=== PATIENT | female | born 1960 | race Caucasian/White ===

== ENCOUNTER 2021-02-19 08:54 | Inpatient (IN) ==
--- NOTE | 2021-02-01 16:02 | PAT Medication Instructions ---
Medication Instructions Date of Service February 01, 2021 Home Medications aspirin [Aspir-81] 81 mg PO QPM baclofen 10 mg PO TID bupropion HCl [Wellbutrin XL] 300 mg PO QAM celecoxib [Celebrex] 200 mg PO QAM dexamethasone 0.5 mg PO BID famotidine [Pepcid] 20 mg PO BID fluocinonide 1 applic TOPICAL BID PRN gabapentin 600 mg PO TID hydrocodone-acetaminophen 1 tab PO QID PRN lisinopril 5 mg PO QPM magnesium 250 mg PO PM montelukast [Singulair] 10 mg PO QAM bcbwutwoiitn-ubqtxdsy-yjbfhp [Centrum Silver] 1 tab PO QAM omega-3 fatty acids-vitamin E [Fish Oil] 2 cap PO QPM omeprazole [Prilosec] 40 mg PO QAM potassium 99 mg PO QPM rosuvastatin [Crestor] 20 mg PO PM Continue as directed fluocinonide 1 applic TOPICAL BID PRN* *Just do not use topical cream on or near surgical site within 24 hours of surgery ASK your surgeon for instructions aspirin [Aspir-81] 81 mg PO QPM celecoxib [Celebrex] 200 mg PO QAM STOP taking 2 weeks before surgery If surgery is within 2 weeks, stop taking as soon as possible. omega-3 fatty acids-vitamin E [Fish Oil] 2 cap PO QPM DO NOT take the morning of surgery baclofen 10 mg PO TID montelukast [Singulair] 10 mg PO QAM jujhdhxrbvpu-lzblmqrm-yusauq [Centrum Silver] 1 tab PO QAM Take morning of surgery With a small sip of water, OTHERWISE NOTHING TO EAT OR DRINK AFTER MIDNIGHT: bupropion HCl [Wellbutrin XL] 300 mg PO QAM dexamethasone 0.5 mg PO BID famotidine [Pepcid] 20 mg PO BID gabapentin 600 mg PO TID hydrocodone-acetaminophen 1 tab PO QID PRN (if needed, may be taken up to four hours before surgery) omeprazole [Prilosec] 40 mg PO QAM Take evening before surgery baclofen 10 mg PO TID dexamethasone 0.5 mg PO BID famotidine [Pepcid] 20 mg PO BID gabapentin 600 mg PO TID hydrocodone-acetaminophen 1 tab PO QID PRN (if needed) lisinopril 5 mg PO QPM magnesium 250 mg PO PM potassium 99 mg PO QPM rosuvastatin [Crestor] 20 mg PO PM Other Notes If you have any questions please call us at [phone] or [phone] or [phone] or [phone]
--- NOTE | 2021-02-04 11:06 | Anesthesiology Consultation ---
Date of Service February 04, 2021 Assessment & Plan (1) Encounter for pre-operative examination: COVID Status: As of 02/04 assessment, patient denies travel to endemic area, known exposure/sick contacts, or symptoms of COVID19. Patient advised to adhere to social distancing guidelines, wear a mask in public and avoid large crowds or unnecessary travel in the 2 weeks leading up to surgery. Preoperative COVID19 testing to be completed prior to surgery per surgeon's arrangements. Pat ient encouraged to be extra cautious/conscientious with COVID precautions between COVID testing and surgery. Chart Review Chart Review: Acceptable Risk for Surgery and Patient seen in Pre Admission Testing Teaching & Discussion Instructed NPO after midnight before surgery, except medications with 15 cc of water. Medication instructions provided according to the PAT guidelines. History Surgery Operation Date: 02/20/21 07:45 Proposed Procedures p L1-L3 Decompression, T11 Revision Fusion, L3 Hardware Removal, Spinal Cord Monitoring - Alonzo Pederson, Height/Weight Height: 5 ft 5 in Weight: 86.1 kg Allergies Allergy/AdvReac Type Severity Reaction Status Date / Time No Known Allergies Allergy Unverified 01/28/21 09:01 Medications Home Medications Medication Instructions Recorded Confirmed Last Taken aspirin [Aspir-81] 81 mg PO QPM 01/28/21 01/28/21 Unknown baclofen 10 mg PO TID 01/28/21 01/28/21 Unknown bupropion HCl [Wellbutrin XL] 300 mg PO QAM 01/28/21 01/28/21 Unknown celecoxib [Celebrex] 200 mg PO QAM 01/28/21 01/28/21 Unknown dexamethasone 0.5 mg PO BID 01/28/21 01/28/21 Unknown famotidine [Pepcid] 20 mg PO BID 01/28/21 01/28/21 Unknown fluocinonide 1 applic TOPICAL BID PRN 01/28/21 01/28/21 Unknown gabapentin 600 mg PO TID 01/28/21 01/28/21 Unknown hydrocodone-acetaminophen 1 tab PO QID PRN 01/28/21 01/28/21 Unknown lisinopril 5 mg PO QPM 01/28/21 01/28/21 Unknown magnesium 250 mg PO PM 01/28/21 01/28/21 Unknown montelukast [Singulair] 10 mg PO QAM 01/28/21 01/28/21 Unknown njksghnrbrgz-msttqkgl-ktvzbq 1 tab PO QAM 01/28/21 01/28/21 Unknown [Centrum Silver] omega-3 fatty acids-vitamin E 2 cap PO QPM 01/28/21 01/28/21 Unknown [Fish Oil] omeprazole [Prilosec] 40 mg PO QAM 01/28/21 01/28/21 Unknown potassium 99 mg PO QPM 01/28/21 01/28/21 Unknown rosuvastatin [Crestor] 20 mg PO PM 01/28/21 01/28/21 Unknown Past Medical History Medical History Anxiety DDD (degenerative disc disease) Depression Diverticulosis GERD (gastroesophageal reflux disease) HLD (hyperlipidemia) HTN (hypertension) Osteoarthritis Osteoporosis Spinal stenosis Exercise / Class Metabolic Activity II 4-5 Yardwork/Stairs/Walk up hill (mobility somewhat limited by back pain but does still do stairs any time she can, no CP or SOB) Past Family History Family History Other No family history of adverse response to anesthesia Past Surgical History Surgical History History of appendectomy History of x 2 History of carpal tunnel release History of cervical spinal surgery limited ROM side to side, up/down History of cholecystectomy History of colonoscopy History of esophagogastroduodenoscopy (EGD) History of lumbar surgery History of tonsillectomy History of total abdominal hysterectomy and bilateral salpingo-oophorectomy History of wisdom tooth extraction Past Anesthesia History No Hx of Anesthesia Complications and No Family Hx of Anesthesia Complications Reports nausea in pre-op area due to anxiety. History of PONV History of PONV (single episode of mild nausea, quickly relieved with IV zofran) and Hx of Motion Sickness Social History Smoking Status: Former smoker Do You Dip or Chew Tobacco: No Smoking End Date: approx 25 years ago Hx Alcohol Use: No Hx Substance Use: No substance use type: does not use Review of Systems Pt denies any recent chest pain, shortness of breath, palpitations, cough, fever, URI, or uncontrolled acid reflux. Physical Exam Vital Signs BP: 98/62 (pt reports this is normal for her, has been low for some time but was told to continue lisinopril; asymptomatic) P: 70bpm SPO2: 96% RA T: 98.1 F R: 16 ENMT Mouth: + dental restorations (few crowns); no chipped teeth and no loose teeth Thyromental Distance: > or= 3.5 Finger Breadths Mallampati Class: I Neck + limited neck extension 2 inch scar R of midline anterior neck Respiratory normal respiratory effort, lungs clear to auscultation Cardiovascular RRR, no murmur, no edema Lab Results Anesthesia Preop Results Results Anesthesia Widget: WBC 8.50 K/uL (4.8-10.8) 02/04/21 Hgb 12.2 g/dL (12.0-16.0) 02/04/21 Hct 36.2 % (37-47) L 02/04/21 Plt 242 K/uL (130-400) 02/04/21 Na 140 mmol/L (136-145) 02/04/21 K 3.8 mmol/L (3.5-5.1) 02/04/21 Cl 107 mmol/L (98-107) 02/04/21 CO2 28 mmol/L (21-32) 02/04/21 BUN 8 mg/dl (7-18) 02/04/21 Creat 0.56 mg/dl (0.6-1.2) L 02/04/21 Glucose Level 94 mg/dl (70-99) 02/04/21 PT 9.8 Seconds (9.0-12.0) 02/04/21 PTT 23.5 Seconds (21.0-31.0) 02/04/21 INR 1.0 (0.9-1.1) 02/04/21 Urine Color Yellow 02/04/21 Urine Appearance Clear (Clear) 02/04/21 Urine pH 7.0 (4.5-7.5) 02/04/21 Urine Specific [place] 1.006 (1.000-1.030) 02/04/21 Urine Protein Negative (Negative) 02/04/21 Urine Glucose (UA) Negative (Negative) 02/04/21 Urine Ketones Negative (Negative) 02/04/21 Urine Blood Negative (Negative) 02/04/21 Urine Nitrite Negative (Negative) 02/04/21 Urine Bilirubin Negative (Negative) 02/04/21 Urine Urobilinogen Negative (Negative) 02/04/21 Urine Leukocyte Esterase Negative (Negative) 02/04/21 Blood Type A Positive 02/04/21 Antibody Screen NEGATIVE 02/04/21 Testing Electrocardiogram Date: 02/04/21 Findings: + NSR @ (66bpm) No significant change compared to 10/21/2012 EKG Chest X-Ray Date: 02/04/21 Findings: + NAD
[~2021-02-19 08:54] MED LIST: ACETAMINOPHEN 500 MG TAB PO SCH; CeleBREX 200 MG CAP PO SCH; GABAPENTIN 600 MG DOSE PO SCH; LR 15ML/HR IV SCH; SUGAMMADEX SODIUM 200 MG/2 ML VIAL IV ONE; ceFAZolin 2000MG 2,000 MG/15 ML SYR IV SCH
[2021-02-19] MEDS ORDERED: NEOSTIGMINE METHYLSULFATE 1 MG/ML 10ML VIAL ONE (10:35)
[2021-02-19] MEDS ORDERED: fentaNYL citrate 100 MCG/2 ML VIAL ONE ×2 (10:35→15:15)
[2021-02-19] MEDS ORDERED: GLYCOPYRROLATE 0.2 MG/ML VIAL ONE (10:35)
[2021-02-19] MEDS ORDERED: MIDAZOLAM HCL 1 MG/ML 2ML VIAL ONE (10:35)
[2021-02-19] MEDS ORDERED: ONDANSETRON INJ 2 MG/ML 2 ML VIAL ONE (10:35)
[2021-02-19] MEDS ORDERED: DEXAMETHASONE SOD INJ 4 MG/ML VIAL ONE (10:35)
[2021-02-19] MEDS ORDERED: LIDOCAINE 2% 2 ML VIAL/AMP(20MG/ML) INFIL ONE (10:35)
[2021-02-19] MEDS ORDERED: PROPOFOL IV EMULSION 10 MG/ML 20 ML VIAL IV ONE (10:35)
[2021-02-19] MEDS ORDERED: HYDROmorphone INJ 2 MG/ML SYR/VIAL IV PRN (10:42)
[2021-02-19] MEDS ORDERED: ePHEDrine sulfate 50 MG/ML AMP IV PRN (10:42)
[2021-02-19] MEDS ORDERED: ATROPINE SULFATE 0.1 MG/ML 10ML SYR IV PRN (10:42)
[2021-02-19] MEDS ORDERED: ONDANSETRON INJ 2 MG/ML 2 ML VIAL IV PRN (10:42)
--- NOTE | 2021-02-19 10:50 | History & Physical Bridge Note ---
Date of Service February 19, 2021 History & Physical Bridge Note I have examined the patient, reviewed the History & Physical and in the interval since the performance of the History & Physical I have noted the following changes of clinical significance: no changes noted
--- NOTE | 2021-02-19 10:52 | History & Physical Report ---
Date of Service February 19, 2021 Assessment & Plan (1) Neurogenic claudication due to lumbar spinal stenosis: Admission and Anticipated Discharge Date Admission Date: L1-L3 decompression, T12 revision fusion, L3 hardware removal History of Present Illness Chief Complaint: Back and bilateral leg pain Primary Care Provider: Flores Mayfield MD This is a 60-year-old female presents with chronic persistent back and leg pain. After failing course of nonoperative care is here for surgical intervention. Allergies Allergy/AdvReac Type Severity Reaction Status Date / Time No Known Allergies Allergy Verified 02/19/21 09:37 Home Medications Medication Instructions Recorded Confirmed Type aspirin [Aspir-81] 81 mg PO QPM 01/28/21 02/19/21 History baclofen 10 mg PO TID 01/28/21 02/19/21 History bupropion HCl [Wellbutrin XL] 300 mg PO QAM 01/28/21 02/19/21 History celecoxib [Celebrex] 200 mg PO QAM 01/28/21 02/19/21 History dexamethasone 0.5 mg PO BID 01/28/21 02/19/21 History famotidine [Pepcid] 20 mg PO BID 01/28/21 02/19/21 History fluocinonide 1 applic TOPICAL BID PRN 01/28/21 02/19/21 History gabapentin 600 mg PO TID 01/28/21 02/19/21 History hydrocodone-acetaminophen 1 tab PO QID PRN 01/28/21 02/19/21 History lisinopril 5 mg PO QPM 01/28/21 02/19/21 History magnesium 250 mg PO PM 01/28/21 02/19/21 History montelukast [Singulair] 10 mg PO QAM 01/28/21 02/19/21 History tifodbejsadb-uutggmjk-rbdmzx 1 tab PO QAM 01/28/21 02/19/21 History [Centrum Silver] omega-3 fatty acids-vitamin E 2 cap PO QPM 01/28/21 02/19/21 History [Fish Oil] omeprazole [Prilosec] 40 mg PO QAM 01/28/21 02/19/21 History potassium 99 mg PO QPM 01/28/21 02/19/21 History rosuvastatin [Crestor] 20 mg PO PM 01/28/21 02/19/21 History Past Med/Surg History Medical History Anxiety DDD (degenerative disc disease) Depression Diverticulosis GERD (gastroesophageal reflux disease) HLD (hyperlipidemia) HTN (hypertension) Osteoarthritis Osteoporosis Spinal stenosis Surgical History History of appendectomy History of x 2 History of carpal tunnel release History of cervical spinal surgery limited ROM side to side, up/down History of cholecystectomy History of colonoscopy History of esophagogastroduodenoscopy (EGD) History of lumbar surgery History of tonsillectomy History of total abdominal hysterectomy and bilateral salpingo-oophorectomy History of wisdom tooth extraction Family History Other No family history of adverse response to anesthesia Social History Smoking Status: Former smoker Smoking End Date: approx 25 years ago; Second Hand Exposure: No; Do You Dip or Chew Tobacco: No; Tobacco Cessation Education Requested by Patient: No Hx Alcohol Use: No Hx Substance Use: No Preferred Language: Upper Sorbian Communication Ability: Effective Chauffeur Required: No Beliefs That Will Affect Care: None Current Living Situation: Alone Feels Safe at Home: Yes Safety Concerns: Feels Safe At This Time Assistive Devices: Glasses Physical Exam Physical Exam: Patient is alert and oriented Heart regular in rhythm Lungs clear to auscultation Results & Data ([facility]) Vital Signs (Past 12 Hours) Vital Signs Temp Pulse Resp BP Pulse Ox 02/19/21 09:48 36.6 C 74 18 148/68 H 98
[2021-02-19] MEDS ORDERED: BUPIVACAINE/EPINEPHRINE 0.5% MPF 1:200,000 30 ML VIAL ONE (11:13)
[2021-02-19] MEDS ORDERED: HYDROmorphone INJ 2 MG/ML SYR/VIAL ONE (11:49)
[2021-02-19] MEDS ORDERED: ePHEDrine sulfate 50 MG/ML AMP ONE (12:13)
[2021-02-19] MEDS ORDERED: ALBUMIN HUMAN 5% 12.5 GM/250 ML VIAL IV ONE (12:33)
[2021-02-19] MEDS ORDERED: FLOSEAL HEMOSTATIC MATRIX 10ML TOP ONE (13:36)
--- NOTE | 2021-02-19 13:41 | Operative Report ---
Post Operative Report Pre & Post Diagnosis Operation Date: 02/19/21 10:50 Pre-Op Diagnosis: Neurogenic Claudication due to Lumbar Spinal Stenosis Post-Op Diagnosis: Neurogenic Claudication due to Lumbar Spinal Stenosis I identified the patient and participated in the time-out.: Yes Procedure Operation Date: 02/19/21 10:50 Actual Procedures #1 removal of posterior instrumentation and connector edgar at L3. #2 exploration of fusion L3-L4. #3 lumbar decompression with bilateral medial facetectomies and foraminotomies L1-L2 L2-L3. #4 posterior spinal fusion T12-L3. #5 placement posterior segmental instrumentation T12 to L 2 including barrel connectors. #6 interbody fusion L2-L3. #7 placement of peek cage 9 x 22 mm at L2-L3. #8 placement locally harvested morselized autograft in the posterior gutters. Midline placement infuse collagen sponge and master graft in the posterior lateral gutters and I factor in the interbody space. Surgeon Alonzo Pederson, Client Support Consultant Kalyani Jamil Estimated Blood Loss 300 Findings Consistent with Post-Op Diagnosis Specimens None Indications This is a 60 old female who presents above-mentioned diagnosis Since course of nonoperative care is here for the above-mentioned procedure. Description of Procedure Patient met with identified informed consent obtained. Patient was then taken to the operative suite underwent a patient placed in a prone position injectable top Reg frame. All bony prominences well-padded eyes inspected to ensure no external pressure placed upon the. This point the thoracolumbar spine was prepped and draped in a sterile fashion. Sharp dissection with the assistance of Bovie cautery performed down to and exposing the lamina and transverse processes T12-L1 L2 and instrumentation at L3-L4 bilaterally. She does have 2 dorsal column stimulator leads placed and was able to work around these lesions without dislodging or moving them. I then proceeded to remove the connector and pedicle screw of L3 bilaterally exposing the proximal portion of the edgar. Fusion mass was explored noted to be mature and intact. And then performed complete laminectomy of L2 plus laminectomy L1 including bilateral medial facetectomies and foraminotomies addressing severe spinal stenosis. Pedicle screws were then placed in T12 L1-L2 bilaterally with assistance of fluoroscopy proper sized edgar placed and connected by way of a barrel connector to the pre- existing edgar. By way of a transfemoral approach on the right a complete discectomy of L2-L3 was performed endplates curetted to subcortical bleeding bone and a 9 x 22 mm peek cage filled with I factor tapped in position. The rods were locked in final position. The transverse processes of T12 L1-L2 and L3 burred to subcortically bone. Infuse collagen sponge master graft local graft was placed in the posterior gutters. 15 round SHAY drain inserted. The incision was then closed with 1 Vicryl fascia 2-0 Vicryl subcutaneously and 4 Monocryl for final skin closure. Steri-Strip sterile dressings placed. Patient waken taken PACU stable condition. Please note spinal cord monitoring visualized at the procedure no changes noted. Lastly Kalyani Jamil was present at the entire surgeon while the patient positioning complex portions of the surgery and final skin closure. I attest to the content of the Intraoperative Record and any orders documented therein. Any exceptions are noted below.
[2021-02-19] MEDS ORDERED: ROCURONIUM BROMIDE 10 MG/ML 5 ML VIAL IV ONE (14:07)
--- NOTE | 2021-02-19 14:10 | Fluoroscopy Report ---
FL lumbar spine 2-3V HISTORY: 60 years-old Female L1-L3 decompression COMPARISON: Lumbar spine radiographs 11/14/2012 TECHNIQUE: 2 spot fluoroscopic images of the lumbar spine were obtained utilizing 21.8 seconds fluoro scopy time FINDINGS: Numbering of the vertebral segments is limited secondary to magnification. The images were submitted after completion of the surgery. Posterior interbody edgar and screw fusion n oted within the upper and mid lumbar spine with lower lumbar discectomy changes. Intrathecal catheter is partially imaged. No unexpected opaque foreign body identified. Surgical clips of the right upper quadrant abdomen. IMPRESSION: Fluoroscopic assistance as above. ACT 112: Negative or not required by law. The above report was generated using voice recognition software. It may contain grammatical, syntax o r spelling errors. Electronically signed by: Jules Nielsen M.D. 02/19/2021 2:09 PM
[2021-02-19] MEDS: fentaNYL citrate 100 MCG/2 ML VIAL IV PRN ×4 (14:23→15:22)
--- NOTE | 2021-02-19 14:36 | Anesthesiology Progress Note ---
Date of Service February 19, 2021 Anesthesia Post Procedure Vital Signs Vital Signs: Temp Pulse Pulse Resp BP Pulse Ox 02/19/21 14:30 85 18 137/59 L 98 02/19/21 14:20 90 22 129/57 L 99 02/19/21 14:10 88 16 135/63 97 02/19/21 14:00 36.3 C L 88 12 93/67 L 94 02/19/21 09:48 36.6 C 74 18 148/68 H 98 Pain Intensity Back: Pain Intensity: 5 Transfer of Care Handoff Completed per policy Notes Mental Status: alert / awake / arousable and participated in evaluation Patient Amnestic to Procedure: Yes Nausea / Vomiting: adequately controlled Pain: adequately controlled Airway Patency, RR, SpO2: stable & adequate BP & HR: stable & adequate Hydration State: stable & adequate Anesthetic Complications: no major complications apparent and Pt Satisfied with anesthetic care
[2021-02-19] MEDS ORDERED: ALUMINUM/MAGNESIUM SUSP 30 ML UDC PO PRN (16:27)
[2021-02-19] MEDS ORDERED: LORazepam 0.5 MG TAB PO PRN (16:27)
[2021-02-19] MEDS ORDERED: METOCLOPRAMIDE HCL INJ 5 MG/ML 2 ML VIAL IV PRN (16:27)
[2021-02-19] MEDS ORDERED: PROMETHAZINE HCL 12.5 MG in SODIUM CHLORIDE 0.9% 50 ML IV PRN (16:27)
[2021-02-19] MEDS ORDERED: NALOXONE HCL 0.4 MG/1 ML VIAL/CARP IV PRN (16:27)
[2021-02-19] MEDS ORDERED: ACETAMINOPHEN 1,000 MG/100 ML VIAL IV PRN (16:27)
[2021-02-19] MEDS ORDERED: traMADol HCL 50 MG TABLET PO PRN (16:27)
[2021-02-19] MEDS ORDERED: ACETAMINOPHEN 500 MG TAB PO PRN (16:27)
[2021-02-19] MEDS ORDERED: DO NOT ADMINISTER FLU VACCINE PRN (16:27)
[2021-02-19] MEDS ORDERED: HYDROmorphone INJ 1 MG/ML SYRINGE IV PRN (16:27)
[2021-02-19] MEDS ORDERED: ONDANSETRON 4 MG OD TAB PO PRN (16:27)
[2021-02-19] MEDS ORDERED: DO NOT ADMINISTER PNEUMOCOCCAL VACCINE PRN (16:27)
[2021-02-19] MEDS ORDERED: FAMOTIDINE 20 MG TAB PO PRN (16:27)
[2021-02-19] MEDS ORDERED: SOD PHOSPHATE/SOD BIPHOSPHATE ENEMA 132 ML BTL PR PRN (16:27)
[2021-02-19] MEDS ORDERED: diphenhydrAMINE Capsule 25 MG CAP PO PRN (16:27)
[2021-02-19] MEDS ORDERED: MAGNESIUM HYDROXIDE SUSP 30 ML UDC PO PRN (16:27)
[2021-02-19] MEDS ORDERED: hydrOXYzine HCl 25 MG TAB PO PRN (16:27)
[2021-02-19] MEDS ORDERED: LORazepam 0.5 MG/1 ML VIAL IV PRN (16:27)
[2021-02-19] MEDS ORDERED: HYDROmorphone INJ 0.5 MG/0.5 ML SYR IV PRN (16:27)
[2021-02-19] MEDS: LACTATED RINGER'S 1,000 ML IV SCH (17:16)
--- NOTE | 2021-02-19 17:22 | Hospitalist Consultation ---
Date of Consultation February 19, 2021 Assessment & Plan (1) Neurogenic claudication due to lumbar spinal stenosis: - Pain management, bowel regimen and DVT ppx per the primary team- has aspirin 81 mg scheduled for 2100 tonight. - PT/OT consults, pt will need CM to assist with outpatient planning for PT/OT - Follow am CBC to monitor for acute blood loss - SHAY drain in place, monitor output -Continue gabapentin (2) HTN (hypertension): - Continue lisinopril 5 mg daily (3) HLD (hyperlipidemia): - cont rosuvastatin 20 mg daily (4) Osteoporosis: - Cont supplementation with vit D, calcium, multivitamin, (5) Depression: (6) Anxiety: -Continue Wellbutrin 300 mg daily DVT PPX - teds, scds CODE: Full code Dispo: From home, likely to remain in the hospital x 1-2 days (7) Osteoarthritis: Supervising Physician Co-Signing Physician Notes Pt was seen and examined. Agreed with Nicolette LYMAN exam, assessment and plan. 60 yo F with PMHx of HTN, HLD, osteoarthritis, osteoporosis, spinal stenosis, DDD, anxiety, depression, failed conservative management, s/p elective L1-L3 decompression, T11 revision fusion, L3 hardware removal by Dr. Pederson on 02/19/2021. No postop complication. Continue incentive spirometry. Continue pain management. Will monitor H/H. Continue PT/OT eval. Fall precaution. Will Continue monitor closely. MD Tra History of Present Illness Reason for Consultation: Medical management Requesting Physician: Dr. Pederson Attending Physician: Alonzo Pederson, History of Present Illness This is a 60 yo F with PMhx of HTN, HLD, osteoarthritis, osteoporosis, spinal stenosis, DDD, anxiety, depression who presented for elective L1-L3 decompression, T11 revision fusion, L3 hardware removal by Dr. Pederson on 02/19/2021. Pt is doing well s/p surgical procedure. Reports that her pain is currently ra darcy a 6 out of 10, plans to eat dinner first and then take another pain relief tablet. She complains of some minor nausea, so was encouraged to take antiemetic if needed. Reports that her last bowel movement was last night. Patient lives at home by herself, has not thought about home PT/OT, was encouraged to talk with case management for assistance with planning discharge process. Allergies Allergy/AdvReac Type Severity Reaction Status Date / Time No Known Allergies Allergy Verified 02/19/21 09:37 Home Medications Medication Instructions Recorded Confirmed Type aspirin 81 mg tablet,delayed 81 mg PO QPM 01/28/21 02/19/21 History release baclofen 10 mg tablet 10 mg PO TID 01/28/21 02/19/21 History bupropion HCl 300 mg 24 hr tablet, 300 mg PO QAM 01/28/21 02/19/21 History extended release (Wellbutrin XL) celecoxib 200 mg capsule (Celebrex) 200 mg PO QAM 01/28/21 02/19/21 History dexamethasone 0.5 mg/5 mL oral 0.5 mg PO BID 01/28/21 02/19/21 History elixir famotidine 20 mg tablet (Pepcid) 20 mg PO BID 01/28/21 02/19/21 History fluocinonide 0.05 % topical 1 applic TOPICAL BID PRN 01/28/21 02/19/21 History ointment gabapentin 600 mg tablet 600 mg PO TID 01/28/21 02/19/21 History hydrocodone 10 mg-acetaminophen 1 tab PO QID PRN 01/28/21 02/19/21 History 325 mg tablet magnesium 250 mg tablet 250 mg PO PM 01/28/21 02/19/21 History montelukast 10 mg tablet 10 mg PO QAM 01/28/21 02/19/21 History (Singulair) gavxuevvletd-nxvhvyej-grpenn tablet 1 tab PO QAM 01/28/21 02/19/21 History omega-3 fatty acids-vitamin E 2 cap PO QPM 01/28/21 02/19/21 History 1,000 mg capsule omeprazole 40 mg capsule,delayed 40 mg PO QAM 01/28/21 02/19/21 History release potassium 99 mg tablet 99 mg PO QPM 01/28/21 02/19/21 History rosuvastatin 20 mg tablet (Crestor) 20 mg PO PM 01/28/21 02/19/21 History Patient History Medical History (Updated 02/19/21 @ 17:39 by Nicolette Washburn PA-C) Anxiety DDD (degenerative disc disease) Depression Diverticulosis GERD (gastroesophageal reflux disease) HLD (hyperlipidemia) HTN (hypertension) Osteoarthritis Osteoporosis Spinal stenosis Surgical History History of appendectomy History of x 2 History of carpal tunnel release History of cervical spinal surgery limited ROM side to side, up/down History of cholecystectomy History of colonoscopy History of esophagogastroduodenoscopy (EGD) History of lumbar surgery History of tonsillectomy History of total abdominal hysterectomy and bilateral salpingo-oophorectomy History of wisdom tooth extraction Family History Other No family history of adverse response to anesthesia Social History Smoking Status: Former smoker Smoking End Date: approx 25 years ago; Second Hand Exposure: No; Do You Dip or Chew Tobacco: No; Tobacco Cessation Education Requested by Patient: No Hx Alcohol Use: No Hx Substance Use: No Preferred Language: German Communication Ability: Effective Ski Lift Operator Required: No Beliefs That Will Affect Care: None marital status: / Current Living Situation: Alone Other Information That Helps Us Care for You: No Feels Safe at Home: Yes Safety Concerns: Feels Safe At This Time Assistive Devices: None Assistive Devices Comment: Cane at times. Review of Systems Review of Systems: Constitutional: No fever, sweats or chills Eyes: No diplopia, no worsening or blurred vision ENT: normal hearing, no trouble swallowing Respiratory: No cough, sputum, dyspnea at rest or on exertion Cardiovascular: No chest pain, tightness or palpitations Abdomen: No pain, nausea, vomiting, diarrhea or constipation Back: pain rate 6/10 currently, SHAY drain in place. Musculoskeletal: No joint pain, calf pain, swelling Neurologic: No weakness, numbness/tingling, or balance problems. + reports nu mbness present in the right lower extremity toes with standing for prolonged periods prior to surgery. Psychiatric: No anxiety or depression Skin: No rash or itch Physical Exam Physical Exam: General: awake, alert, no apparent distress, obese with BMI of 32.0 Head: Normocephalic, atraumatic ENT: PERRL, EOMI, no pharyngeal exudate, mucous membranes moist Chest: Clear to auscultation, on room air, no adventitious breath sounds Cardiac: Regular rate and rhythm, no murmur, no JVD, normal peripheral pulses, good capillary refill Abdominal: NABS x 4 quadrants, soft, nondistended, nontender to palpation, no rebound or guarding Back: SHAY drain in place draining bloody fluid. Back not examined as patient ly ing flat. Extremities: Normal inspection, no peripheral edema or erythema, calfs nontender to palpation Psych: Normal mood and affect Neuro: AAO x 3, strength intact bilaterally and rated 5/5, no motor deficits, speech is clear, no peripheral sensory deficits. Results & Data Results & Data ([facility]) Vital Signs (Past 12 Hours) Vital Signs Temp Pulse Pulse Resp BP BP Pulse Ox 02/19/21 17:17 87 18 114/57 L 95 02/19/21 16:50 36.8 C 88 18 108/59 L 98 02/19/21 16:20 87 16 123/52 L 95 02/19/21 16:05 79 16 125/60 98 02/19/21 15:50 78 16 125/60 94 02/19/21 15:35 73 16 120/58 L 97 02/19/21 15:20 76 22 125/62 99 02/19/21 15:05 83 20 122/56 L 99 02/19/21 14:50 36.1 C L 79 20 128/55 L 99 02/19/21 14:40 36.1 C L 85 22 126/56 L 100 02/19/21 14:30 85 18 137/59 L 98 02/19/21 14:20 90 22 129/57 L 99 02/19/21 14:10 88 16 135/63 97 02/19/21 14:00 36.3 C L 88 12 93/67 L 94 02/19/21 09:48 36.6 C 74 18 148/68 H 98
[2021-02-19] MEDS: oxyCODONE HCL IR 5 MG TAB (IMMEDIATE RELEASE) PO PRN (17:45)
[2021-02-19] MEDS: BACLOFEN 10 MG TAB PO SCH ×2 (17:46→21:53)
[2021-02-19] MEDS: GABAPENTIN 600 MG TAB PO SCH ×2 (17:47→21:53)
[2021-02-19] MEDS: KETOROLAC TROMETHAMINE 15 MG/ML VIAL IV SCH ×2 (17:48→23:00)
[2021-02-19] MEDS: ceFAZolin 2000MG 2,000 MG/15 ML SYR IV SCH (20:06)
[2021-02-19] MEDS ORDERED: DOCUSATE SODIUM/SENNA 50/8.6MG TAB PO SCH (21:00)
[2021-02-19] MEDS ORDERED: NON-FORMULARY MEDICATION (Potassium 99 mg Tablet) PO SCH (21:00)
[2021-02-19] MEDS: ROSUVASTATIN CALCIUM 20 MG TAB PO SCH (21:53)
[2021-02-19] MEDS: OMEGA-3 (PURIFIED FISH OIL) 1 GM CAP PO SCH (21:53)
[2021-02-19] MEDS: FAMOTIDINE 20 MG TAB PO SCH (21:53)
[2021-02-19] MEDS: MAGNESIUM OXIDE 400 MG TAB PO SCH (21:53)
[2021-02-19] MEDS: ASPIRIN 81 MG ECTAB PO SCH (21:53)
[2021-02-19] MEDS: lisinopril 5 MG TAB PO SCH (21:53)
[2021-02-19] MEDS: ONDANSETRON INJ 2 MG/ML 2 ML VIAL IV PRN (22:58)
[2021-02-20] MEDS: oxyCODONE HCL IR 5 MG TAB (IMMEDIATE RELEASE) PO PRN ×6 (00:31→23:27)
[2021-02-20] MEDS: ceFAZolin 2000MG 2,000 MG/15 ML SYR IV SCH (03:22)
[2021-02-20] MEDS: LACTATED RINGER'S 1,000 ML IV SCH (04:40)
[2021-02-20] MEDS: KETOROLAC TROMETHAMINE 15 MG/ML VIAL IV SCH ×2 (05:10→11:39)
[2021-02-20] MEDS: POLYETHYLENE (MIRALAX) 17 GM PACK PO SCH ×3 (05:10→17:55)
[2021-02-20] MEDS ORDERED: CeleBREX 200 MG CAP PO SCH (06:00)
[2021-02-20] MEDS ORDERED: GABAPENTIN 600 MG DOSE PO SCH (06:00)
[2021-02-20] MEDS ORDERED: LR 15ML/HR IV SCH (06:00)
[2021-02-20] MEDS ORDERED: ceFAZolin 2000MG 2,000 MG/15 ML SYR IV SCH (06:00)
[2021-02-20] MEDS ORDERED: ACETAMINOPHEN 500 MG TAB PO SCH (06:00)
[2021-02-20 07:45] LABS: Basophils # (auto) 0.01 K/uL (0-0.2); Basophils % (auto) 0.1 %; Eosinophils # (auto) 0.02 K/uL (0-0.5); Eosinophils % (auto) 0.2 %; Hematocrit (blood only) 29.5 % (37-47); Hemoglobin 9.9 g/dL (12.0-16.0); Immature Granulocytes # (auto) 0.05 K/uL (0.00-0.02); Immature Granulocytes % (auto) 0.4 %; Lymphocytes # (auto) 2.84 K/uL (1.2-3.4); Lymphocytes % (auto) 21.6 %; Mean Corpuscular Hemoglobin 31.2 pg (25-34); Mean Corpuscular Hgb Conc 33.6 g/dL (32-36); Mean Corpuscular Volume 93.1 fL (80-100); Mean Platelet Volume 10.8 fL (7.4-10.4); Monocytes # (auto) 1.26 K/uL (0.11-0.59); Monocytes % (auto) 9.6 %; Neutrophils # (auto) 8.98 K/uL (1.4-6.5); Neutrophils % (auto) 68.1 %; Platelet Count 203 K/uL (130-400); RDW Coefficient of Variation 13.4 % (11.5-14.5); RDW Standard Deviation 45.5 fL (36.4-46.3); Red Blood Count 3.17 M/uL (4.2-5.4); White Blood Count 13.16 K/uL (4.8-10.8)
[2021-02-20 08:24] LABS: BUN Creatinine Ratio 17.2 (10-20); Calcium 8.6 mg/dl (8.5-10.1); Creatinine Clr Calc Pharmacy 105.8 ml/min; Est GFR (African American) 114.5 ml/min; Est GFR (Non-African American) 98.8 ml/min; Potassium 3.6 mmol/L (3.5-5.1)
[2021-02-20] MEDS ORDERED: NON-FORMULARY MEDICATION (Multivitamin-Minerals-Lutein Tablet) PO SCH (09:00)
[2021-02-20] MEDS: GABAPENTIN 600 MG TAB PO SCH ×3 (09:19→21:09)
[2021-02-20] MEDS: MONTELUKAST SODIUM 10 MG TABLET PO SCH (09:20)
[2021-02-20] MEDS: buPROPion XL 300 MG TABCR PO SCH (09:21)
[2021-02-20] MEDS: FAMOTIDINE 20 MG TAB PO SCH ×2 (09:21→21:09)
[2021-02-20] MEDS: BACLOFEN 10 MG TAB PO SCH ×3 (09:21→21:09)
[2021-02-20] MEDS: PANTOprazole 40 MG TAB PO SCH (09:21)
--- NOTE | 2021-02-20 09:21 | Hospitalist Progress Note ---
Date of Service February 20, 2021 Assessment & Plan (1) Neurogenic claudication due to lumbar spinal stenosis: - Pain management, bowel regimen and DVT ppx per the primary team- aspirin 81 mg QPM. - PT/OT consults, pt will need CM to assist with outpatient planning for PT/OT - CBC dropped from 12.2 to 9.9, no need for transfusion. Continue to monitor for acute blood loss - SHAY drain in place, monitor output, 100 mL out overnight. - Continue gabapentin - Pain adequately controlled (2) HTN (hypertension): - Continue lisinopril 5 mg daily (3) HLD (hyperlipidemia): - cont rosuvastatin 20 mg daily (4) Osteoporosis: - Cont supplementation with vit D, calcium, multivitamin (5) Depression: (6) Anxiety: -Continue Wellbutrin 300 mg daily DVT PPX - teds, scds, ambulatory CODE: Full code Dispo: From home, likely to remain in the hospital x 1-2 days (7) Osteoarthritis: Admission and Anticipated Discharge Date Admission Date: February 19, 2021 Subjective The patient was seen and examined this morning. Patient reports feeling stiff and sore in her lower back, she is sitting upright in bedside chair. Patient ate breakfast this morning, no nausea compared to last night, is passing gas but no BM yet. Travis catheter still in place however nursing is going to remove that this morning. She did not sleep very well overnight due to pain but feels that oxycodone 10 mg about every 4-5 hours is controlling her pain better. Discussion had regarding blood drop from 12 to 9.9, and that she does not need a blood transfusion at this point in time. She has walked in the hallway already this morning with nursing and did well. Patient denies any other acute complaints. Review of Systems Review of Systems: Constitutional: No fever, sweats or chills Eyes: No diplopia, no worsening or blurred vision ENT: normal hearing, no trouble swallowing Respiratory: No cough, sputum, dyspnea at rest or on exertion Cardiovascular: No chest pain, tightness or palpitations Abdomen: No pain, nausea, vomiting, diarrhea or constipation Back: pain moderate, SHAY drain in place. Musculoskeletal: No joint pain, calf pain, swelling Neurologic: No weakness, numbness/tingling, or balance problems. + Walked hallway this morning without difficulty. Psychiatric: No anxiety or depression Skin: No rash or itch Physical Exam Physical Exam: General: awake, alert, no apparent distress, obese with BMI of 32.0 Head: Normocephalic, atraumatic ENT: PERRL, EOMI, no pharyngeal exudate, mucous membranes moist Chest: Clear to auscultation, on room air, no adventitious breath sounds Cardiac: Regular rate and rhythm, no murmur, no JVD, normal peripheral pulses, good capillary refill Abdominal: NABS x 4 quadrants, soft, nondistended, nontender to palpation, no rebound or guarding Back: SHAY drain in place draining bloody fluid. Back with dressing C/D/I. Extremities: Normal inspection, no peripheral edema or erythema, calfs nontender to palpation Psych: Normal mood and affect Neuro: AAO x 3, strength intact bilaterally and rated 5/5, no motor deficits, speech is clear, no peripheral sensory deficits. Results & Data Results & Data ([facility]) Vital Signs (Past 12 Hours) Vital Signs Temp Pulse Pulse Resp BP Pulse Ox 02/20/21 08:05 36.8 C 67 16 106/63 96 02/20/21 03:16 36.8 C 78 17 103/62 97 02/19/21 22:21 36.6 C 75 17 95 02/19/21 21:50 76 125/68
--- NOTE | 2021-02-20 10:26 | Orthopedic Progress Note ---
Date of Service February 20, 2021 Assessment & Plan (1) Neurogenic claudication due to lumbar spinal stenosis: Admission and Anticipated Discharge Date Admission Date: February 19, 2021 At this time continue physical therapy monitor SHAY output hopefully discharge home in next few days. Subjective Patient's back pain is controlled leg symptoms improved Physical Exam Physical Exam: Patient is in the chair at the bedside. Is good strength testing. Appears comfortable. Results & Data ([facility]) Vital Signs (Past 12 Hours) Vital Signs Temp Pulse Pulse Resp BP Pulse Ox 02/20/21 08:05 36.8 C 67 16 106/63 96 02/20/21 03:16 36.8 C 78 17 103/62 97
[2021-02-20] MEDS ORDERED: LOPERAMIDE HCL 2 MG CAP PO STA (18:49)
[2021-02-20] MEDS ORDERED: POLYETHYLENE (MIRALAX) 17 GM PACK PO PRN (18:49)
[2021-02-20] MEDS: MAGNESIUM OXIDE 400 MG TAB PO SCH (21:09)
[2021-02-20] MEDS: ROSUVASTATIN CALCIUM 20 MG TAB PO SCH (21:09)
[2021-02-20] MEDS: lisinopril 5 MG TAB PO SCH (21:09)
[2021-02-20] MEDS: OMEGA-3 (PURIFIED FISH OIL) 1 GM CAP PO SCH (21:09)
[2021-02-20] MEDS: ASPIRIN 81 MG ECTAB PO SCH (21:09)
[2021-02-21] MEDS: oxyCODONE HCL IR 5 MG TAB (IMMEDIATE RELEASE) PO PRN ×5 (03:33→23:17)
[2021-02-21] MEDS: dexAMETHasone 8 MG in SYRINGE 0 ML IV SCH (07:54)
[2021-02-21] MEDS: BACLOFEN 10 MG TAB PO SCH ×3 (07:55→20:56)
[2021-02-21] MEDS: PANTOprazole 40 MG TAB PO SCH (07:56)
[2021-02-21] MEDS: buPROPion XL 300 MG TABCR PO SCH (07:56)
[2021-02-21] MEDS: MONTELUKAST SODIUM 10 MG TABLET PO SCH (07:57)
[2021-02-21] MEDS ORDERED: bisacodyL 10 MG SUPP PR PRN (08:00)
[2021-02-21] MEDS: GABAPENTIN 600 MG TAB PO SCH ×3 (08:05→20:56)
[2021-02-21] MEDS: FAMOTIDINE 20 MG TAB PO SCH ×2 (08:05→20:56)
--- NOTE | 2021-02-21 08:16 | Communication Note ---
Date of Service: February 21, 2021 Hypotension/acute blood loss anemia: Patient noted to be borderline hypotensive BP 99/63, pulse 94 We will order to hold lisinopril, no IV fluids ordered as patient may need blood transfusion. Ordered to check H&H, hemoglobin drop noted yesterday 129.9 Patient still have SHYA drain With further drop of hemoglobin, given hypotensive episode may need blood t ransfusion Abimbola Munson MD
[2021-02-21 08:25] LABS: Hematocrit (blood only) 30.7 % (37-47); Hemoglobin 10.1 g/dL (12.0-16.0)
--- NOTE | 2021-02-21 08:40 | Orthopedic Progress Note ---
Date of Service February 21, 2021 Assessment & Plan (1) Neurogenic claudication due to lumbar spinal stenosis: Admission and Anticipated Discharge Date Admission Date: February 19, 2021 This time continue physical therapy monitor SHAY output anticipate discharge home tomorrow. Subjective Back pain controlled leg symptoms markedly improved Physical Exam Physical Exam: Patient is in a chair at the bedside. Appears comfortable. Is good strength testing. Results & Data ([facility]) Vital Signs (Past 12 Hours) Vital Signs Temp Pulse Pulse Resp BP Pulse Ox 02/21/21 07:25 37 C 94 H 16 99/63 L 95 02/21/21 05:35 96/63 L 02/20/21 22:20 37.6 C H 02/20/21 22:04 38.0 C H 87 17 91/48 L 98 02/20/21 21:07 88 113/67
--- NOTE | 2021-02-21 08:46 | Communication Note ---
Date of Service: February 21, 2021 Repeat lab work: H&H 10.09/15.7 Does not need any blood transfusion, IV fluids, will continue to hold lisinopril, Monitor vitals. Abimbola Munson MD
[2021-02-21] MEDS ORDERED: SODIUM CHLORIDE 0.9% 1000ML 1,000 ML IV SCH (09:00)
[2021-02-21] MEDS: ONDANSETRON INJ 2 MG/ML 2 ML VIAL IV PRN (09:05)
[2021-02-21 09:23] LABS: BUN Creatinine Ratio 17.3 (10-20); Calcium 8.6 mg/dl (8.5-10.1); Est GFR (African American) 113.9 ml/min; Est GFR (Non-African American) 98.2 ml/min; Potassium 3.6 mmol/L (3.5-5.1)
--- NOTE | 2021-02-21 13:38 | Hospitalist Progress Note ---
Date of Service February 21, 2021 Assessment & Plan (1) Neurogenic claudication due to lumbar spinal stenosis: Recovering well postoperatively, -Acute blood loss anemia, hemoglobin drop noted 12-10 Indication for blood transfusion Diarrhea/loose stool. Due to stool softeners/scheduled laxative ordered. Symptom has resolved after Imodium, Change all stool softeners to as needed (2) HTN (hypertension): Hypotensive episode noted, H&H has been stable postoperatively To hold lisinopril 5 mg daily, Will be given IV fluids Patient reports home blood pressure recording less than 100 Crawford dizzy spell lightheadedness when standing up at home, She may need reduced dose of lisinopril 2.5 mg daily on discharge (3) HLD (hyperlipidemia): - cont rosuvastatin 20 mg daily (4) Osteoporosis: - Cont supplementation with vit D, calcium, multivitamin (5) Depression: (6) Anxiety: -Continue Wellbutrin 300 mg daily DVT PPX - teds, scds, ambulatory CODE: Full code Dispo: As per primary team (7) Osteoarthritis: Admission and Anticipated Discharge Date Admission Date: February 19, 2021 Subjective Follow-up orthopedic consult visit: Status post lumbar decompression surgery. Patient reports diarrhea, loose stool has resolved after taking Imodium. Back pain reasonably controlled, at the SHAY drain Patient's blood pressure noted to be low 99 /63 today, denies of any symptoms of dizzy spell or lightheadedness at rest or standing Reports at home her blood pressure sometimes drops below 100, and she feels dizzy and lightheaded Takes lisinopril 5 mg daily, Ordered to hold BP meds, will be given IV fluids Review of Systems Review of Systems: All systems reviewed & are unremarkable except as noted in Subjective Physical Exam Constitutional: WD/WN, vitals as above Eyes: PERRL, conjunctivae normal, anicteric sclerae ENMT: external ear and nose normal, oropharynx normal Neck: trachea midline, no thyromegaly Respiratory: normal respiratory effort, lungs clear to auscultation Cardiovascular: RRR, no murmur, no edema Gastrointestinal (Abdomen): Percussion/Palpation: abdomen soft; abdomen nontender Musculoskeletal: Status post spinal decompression surgery SHAY drain present Skin: no rashes, warm and dry Neurologic: PERRL, EOMI, accommodation nl, no face palsy, no dysarthria Psychiatric: A+Ox3, euthymic affect Results & Data Results & Data ([facility]) Vital Signs (Past 12 Hours) Vital Signs Temp Pulse Resp BP Pulse Ox 02/21/21 07:25 37 C 94 H 16 99/63 L 95 02/21/21 05:35 96/63 L
[2021-02-21] MEDS: ASPIRIN 81 MG ECTAB PO SCH (20:56)
[2021-02-21] MEDS: OMEGA-3 (PURIFIED FISH OIL) 1 GM CAP PO SCH (20:56)
[2021-02-21] MEDS: ROSUVASTATIN CALCIUM 20 MG TAB PO SCH (20:56)
[2021-02-21] MEDS: MAGNESIUM OXIDE 400 MG TAB PO SCH (20:56)
[2021-02-22] MEDS: oxyCODONE HCL IR 5 MG TAB (IMMEDIATE RELEASE) PO PRN ×3 (03:15→11:25)
[2021-02-22] MEDS: GABAPENTIN 600 MG TAB PO SCH (07:15)
[2021-02-22] MEDS: BACLOFEN 10 MG TAB PO SCH (07:15)
[2021-02-22] MEDS: buPROPion XL 300 MG TABCR PO SCH (07:16)
[2021-02-22] MEDS: PANTOprazole 40 MG TAB PO SCH (07:16)
[2021-02-22] MEDS: dexAMETHasone 8 MG in SYRINGE 0 ML IV SCH (07:16)
[2021-02-22] MEDS: MONTELUKAST SODIUM 10 MG TABLET PO SCH (07:16)
[2021-02-22] MEDS: FAMOTIDINE 20 MG TAB PO SCH (07:17)
[2021-02-22] MEDS: ONDANSETRON INJ 2 MG/ML 2 ML VIAL IV PRN (07:27)
--- NOTE | 2021-02-22 09:27 | Discharge Summary ---
Date of Service February 22, 2021 Admission HPI Per Admitting Provider This is a 60-year-old female presents with chronic persistent back and leg pain. After failing course of nonoperative care is here for surgical intervention. Principal Diagnosis Lumbar spinal stenosis with neurogenic claudication Discharge Data Allergies Allergy/AdvReac Type Severity Reaction Status Date / Time No Known Allergies Allergy Verified 02/19/21 09:37 Consultations 02/19/21 16:27 Consult Hospitalist Routine Procedures Performed Operation Date: 02/19/21 10:50 Actual Procedures p L1-L3 Decompression with Insertion of Interbody, Application of Bone Morphogenetic Protein, T11 Revision Fusion, Spinal Cord Monitoring(Not Applicable) - Alonzo Pederson DO s L3 Hardware Removal(Not Applicable) - Alonzo Pederson DO Ordered Studies 02/19/21 [place] lumbar spine 2-3V Routine Hospital Course (1) Neurogenic claudication due to lumbar spinal stenosis: Patient with lumbar decompression fusion trial exhausting orthopedic for postop labor postop and when she is up and ambulating Av postop day #2 on postop day #3 pain was well controlled excellent strength testing SHAY drain decreasing probably. Subsequent discharge home. Discharge orders and instructions from the chart for further review. Total Time Total Time Spent Total Time Spent (In Minutes): 20 minutes Discharge Plan Discharge Items Patient Disposition: Home - Self-Care Reason For Visit: Spinal Stenosis, Lumbar Region without Discharge Diagnosis: Lumbar spinal stenosis with neurogenic claudication Activity: As commented below Non-emergency contact: Primary Care Provider Call non-emergency contact if: you have any medication questions Follow-up/Referrals: Flores Mayfield MD [Primary Care Provider] - Diet: Regular Addtl Attending Provider Instructions: ACTIVITY RECOMMENDATIONS: SELF CARE INSTRUCTIONS AFTER THORACIC/LUMBAR FUSIONS 1. You may walk to your tolerance. It is good exercise for your legs and back. Expect some back and intermittent leg aches and pains. 2. You may perform "counter-top" level activities (make a sandwich, kwadwo with a project, etc.). 3. No bending or lifting of more than 10 pounds or back twisting of any nature (roll like a log when turning in bed). 4. You may ride in a car for 20-30 minutes at a time. No driving until after your first visit with your doctor. 5. Frequent changes of position and restricting sitting to 30 minutes at a time will help limit the amount of back spasms and stiffness you may experience. 6. You may discontinue the use of ambulatory aids (cane, crutches, etc.) once your strength and confidence allow. 7. You may staff internist office based only the shower and let water strike your incision when you arrive home at least once daily. Do not take a tub bath, sit in a hot tub or go into a swimming pool until after your first recheck in the office. SPECIAL CARE INSTRUCTIONS: VERY IMPORTANT TO READ AND REVIEW A. Your surgical incision has been closed with a cosmetic suture under the skin that will dissolve in about 6 weeks. In 14 days, you can use a pair of clean scissors and cut the suture that is left outside of the skin at the ends of your incision. 1. The small skin tapes can be removed 7 days after surgery if they have not fallen off by that point. 2. You may keep the wound open to air as much as possible to promote healing after post-op day number 5 unless told otherwise by your doctor. 3. If you think the wound looks like it is becoming infected (redness or worsening drainage) and/or you are experiencing fever, chill or worsening back pain and muscle spasms, contact the office so that we may evaluate you as soon as possible. B. Complications are uncommon, but please contact us if you have any signs or symptoms of: 1. wound infection (fever higher than 102.5 degrees F, redness, separation of wound, drainage, or increasing pain from the incision) 2. blood clots in legs (pain, swelling, redness and warmth in legs) 3. urinary tract infection (fever higher than 102.5 degrees F, burning upon urination or increased frequency of urination) 4. nerve problems (inability to walk on your toes or heels, numbness, loss of bowel or bladder control) 5. any other symptoms that concern you C. Please call the office at if you have any concerns or questions about your operation or recovery. D. No smoking! Smoking drastically decreases the chance of a solid fusion. E. Do not take any anti-inflammatory medications (Indocin, Advil, Motrin, Aspirin, Naprosyn, etc.) as these may inhibit the chance of a solid fusion. Tylenol is okay to take for pain. MANAGING PAIN AFTER SPINAL SURGERY 1. Narcotic medication is intended for short-term use and will be provided for surgical pain. Surgical pain usually lasts for a period of 4-6 weeks. Narcotic medication includes Percocet, Vicodin, Darvocet, Tylenol #3 or Lortab. 2. Longer-term pain is more appropriately treated with non-narcotic medication such as Tylenol ES. 3. Muscle spasm is not appropriately treated with narcotics. Muscle relaxers such as Soma, Flexeril or Skelaxin can be used along with Tylenol ES. 4. Remember that we all live with some "aches and pains". This is not unusual or uncommon after an injury or as we get older. a. Back pain is expected and may include muscle spasms for 4 to 6 weeks after surgery. The pain should gradually improve. If the pain worsens for no apparent reason, please contact the office. b. Intermittent leg pain may also be experienced and should not be concerned about unless it worsens for no apparent reason. If so, please contact the office. 5. We will provide appropriate medication within the normal guidelines of their prescribed use. We will also be very cautious and aware of potential abuse and extended duration of patients' medication needs. a. Pain medications are for your comfort and to assist with sleep and rest so that the tissue can heal. They are not provided in order to return to normal activity and should not be used through the day. To do so or worsening pain at night can result from ongoing tissue damage and development of tolerance to the prescribed medicine. 6. Please allow 2-3 days to process refills. Prescriptions will not be mailed but must be picked up at the office. FOLLOW UP VISIT: Keep your scheduled follow-up appointment. Any questions, please call the office at . Addtl Mixer Attendant Provider Instructions: Please take all medications as instructed on discharge list below. Please call if you have any questions or problems. You can reach a [facility] hospitalist on duty at [facility] 24 hours a day by calling [phone] Your blood pressure medication: Lisinopril dose reduced to 2.5 mg daily Please follow-up with your family physician to blood pressure monitoring and adjustment of BP medication as indicated Pending Studies at Discharge: No Stand-Alone Forms: My [facility], Smoking Cessation Medications and DC Order Prescriptions: Continued celecoxib [Celebrex] 200 mg Capsule 200 mg PO QAM RF: 0 gabapentin 600 mg Tablet 600 mg PO TID RF: 0 fluocinonide 0.05 % Ointment 1 applic TOPICAL BID PRN (Reason: ud) RF: 0 hydrocodone-acetaminophen 10-325 mg Tablet 1 tab PO QID PRN (Reason: Pain) RF: 0 omeprazole 40 mg Capsule,Delayed Release(Dr/Ec) 40 mg PO QAM RF: 0 aspirin 81 mg Tablet,Delayed Release (Dr/Ec) 81 mg PO QPM RF: 0 dexamethasone 0.5 mg/5 mL Elixir 0.5 mg PO BID RF: 0 potassium 99 mg Tablet 99 mg PO QPM RF: 0 famotidine [Pepcid] 20 mg Tablet 20 mg PO BID RF: 0 baclofen 10 mg Tablet 10 mg PO TID RF: 0 montelukast [Singulair] 10 mg Tablet 10 mg PO QAM RF: 0 magnesium 250 mg Tablet 250 mg PO PM RF: 0 [id number]-scxrxt Tablet 1 tab PO QAM RF: 0 omega-3 fatty acids-vitamin E 1,000 mg Capsule 2 cap PO QPM RF: 0 rosuvastatin [Crestor] 20 mg Tablet 20 mg PO PM RF: 0 bupropion HCl [Wellbutrin XL] 300 mg Tablet Extended Release 24 Hr 300 mg PO QAM RF: 0 Changed lisinopril 5 mg Tablet 2.5 mg PO QPM Qty: 0 RF: 0 Discharge Orders: Discharge Order (Routine); Ordered 02/22/21 Ordered By: Alonzo Pederson Admission Data Admit Date/Time: 02/19/21 14:17 Attending Provider: Alonzo Pederson Admit Provider: Alonzo Pederson Primary Care Provider: Flores Mayfield Other Providers: Elvie Quinones ; Abimbola Munson
--- NOTE | 2021-02-22 14:47 | Hospitalist Progress Note ---
Date of Service February 22, 2021 Assessment & Plan (1) Neurogenic claudication due to lumbar spinal stenosis: Recovering well postoperatively, -Acute blood loss anemia, hemoglobin drop noted 12-10 Indication for blood transfusion Diarrhea/loose stool. Resolved, no further episode (2) HTN (hypertension): Hypotensive episode noted, H&H has been stable postoperatively To hold lisinopril 5 mg daily, -IV fluids given Patient reports home blood pressure recording less than 100 A.m. blood pressure shows BP 108/59, Patient has not received any blood pressure medications/lisinopril Given baseline hypotension would recommend discontinuation of lisinopril, follow-up with her family physician in a week and recheck blood pressure (3) HLD (hyperlipidemia): - cont rosuvastatin 20 mg daily (4) Osteoporosis: - Cont supplementation with vit D, calcium, multivitamin (5) Depression: (6) Anxiety: -Continue Wellbutrin 300 mg daily DVT PPX - teds, scds, ambulatory CODE: Full code Dispo: As per primary team (7) Osteoarthritis: Admission and Anticipated Discharge Date Admission Date: February 19, 2021 Subjective Follow-up orthopedic consult visit: Status post lumbar decompression surgery. Sitting on chair, states back pain has improved No fever or chills, No more loose stool or diarrhea Physical Exam Constitutional: WD/WN, vitals as above Eyes: PERRL, conjunctivae normal, anicteric sclerae ENMT: external ear and nose normal, oropharynx normal Neck: trachea midline, no thyromegaly Respiratory: normal respiratory effort, lungs clear to auscultation Cardiovascular: RRR, no murmur, no edema Gastrointestinal (Abdomen): Percussion/Palpation: abdomen soft; abdomen nontender Skin: no rashes, warm and dry Neurologic: PERRL, EOMI, accommodation nl, no face palsy, no dysarthria Psychiatric: A+Ox3, euthymic affect Results & Data Results & Data ([facility]) Vital Signs (Past 12 Hours) Vital Signs Temp Pulse Pulse Pulse Resp BP BP 02/22/21 09:28 36.9 C 88 87 74 17 108/59 L 101/63 02/22/21 05:41 36.9 C 74 17 101/63 Pulse Ox 02/22/21 09:28 97 02/22/21 05:41 97
== END 2021-02-22 12:09 | disposition home or self-care (01) | DRG 454 ==
LOC: ASU 08:54 → PACUINP 14:17 → 3E 16:59

== ENCOUNTER 2023-09-22 15:23 | Inpatient (IN) ==
[2023-09-22] MEDS ORDERED: diphenhydrAMINE Capsule 25 MG CAP PO PRN (15:53)
[2023-09-22] MEDS ORDERED: HYDROmorphone INJ 0.5 MG/0.5 ML SYR IV PRN (15:53)
[2023-09-22] MEDS ORDERED: NALOXONE HCL 0.4 MG/1 ML VIAL/CARP IV PRN (15:53)
[2023-09-22] MEDS ORDERED: PROMETHAZINE HCL 12.5 MG in SODIUM CHLORIDE 0.9% 50 ML IV PRN (15:53)
[2023-09-22] MEDS ORDERED: ACETAMINOPHEN 1,000 MG/100 ML VIAL IV PRN (15:53)
[2023-09-22] MEDS ORDERED: ONDANSETRON 4 MG OD TAB PO PRN (15:53)
[2023-09-22] MEDS ORDERED: ONDANSETRON INJ 2 MG/ML 2 ML VIAL IV PRN (15:53)
[2023-09-22] MEDS ORDERED: LORazepam 0.5 MG in SYRINGE 0.25 ML IV PRN (15:53)
[2023-09-22] MEDS ORDERED: METOCLOPRAMIDE HCL INJ 5 MG/ML 2 ML VIAL IV PRN (15:53)
[2023-09-22] MEDS ORDERED: traMADol HCL 50 MG TABLET PO PRN (15:53)
--- NOTE | 2023-09-22 16:26 | Anesthesiology Consultation ---
Date of Service September 22, 2023 Assessment & Plan (1) Encounter for pre-operative examination: Chart Review Chart Review: Acceptable Risk for Surgery and Patient NOT seen in Pre Admission Testing Consults Requested none History Surgery Operation Date: 09/23/23 07:00 Proposed Procedures p T9-T12 Decompression and Fusion, T12-L2 Hardware Removal - Alonzo Pederson DO Allergies Allergy/AdvReac Type Severity Reaction Status Date / Time No Known Allergies Allergy Verified 02/19/21 09:37 Medications Home Medications Medication Instructions Recorded Confirmed Last Taken aspirin 81 mg tablet,delayed 81 mg PO QPM 01/28/21 02/19/21 02/12/21 release baclofen 10 mg tablet 10 mg PO TID 01/28/21 02/19/21 02/18/21 19:30 bupropion HCl 300 mg 24 hr tablet, 300 mg PO QAM 01/28/21 02/19/21 02/19/21 05:30 extended release (Wellbutrin XL) celecoxib 200 mg capsule (Celebrex) 200 mg PO QAM 01/28/21 02/19/21 02/12/21 dexamethasone 0.5 mg/5 mL oral 0.5 mg PO BID 01/28/21 02/19/21 02/18/21 08:00 elixir famotidine 20 mg tablet (Pepcid) 20 mg PO BID 01/28/21 02/19/21 02/19/21 05:30 fluocinonide 0.05 % topical 1 applic topical BID PRN ud 01/28/21 02/19/21 02/18/21 08:00 ointment gabapentin 600 mg tablet 600 mg PO TID 01/28/21 02/19/21 02/19/21 05:30 hydrocodone 10 mg-acetaminophen 1 tab PO QID PRN Pain 01/28/21 02/19/21 02/19/21 05:30 325 mg tablet magnesium 250 mg tablet 250 mg PO PM 01/28/21 02/19/21 02/12/21 montelukast 10 mg tablet 10 mg PO QAM 01/28/21 02/19/21 02/18/21 08:00 (Singulair) [id number]-[id number]-rpycrh tablet 1 tab PO QAM 01/28/21 02/19/21 02/18/21 08:00 omega-3 fatty acids-vitamin E 2 cap PO QPM 01/28/21 02/19/21 02/12/21 1,000 mg capsule omeprazole 40 mg capsule,delayed 40 mg PO QAM 01/28/21 02/19/21 02/18/21 08:00 release potassium 99 mg tablet 99 mg PO QPM 01/28/21 02/19/21 02/18/21 rosuvastatin 20 mg tablet (Crestor) 20 mg PO PM 01/28/21 02/19/21 02/18/21 20:00 Past Medical History Medical History Anxiety DDD (degenerative disc disease) Depression Diverticulosis GERD (gastroesophageal reflux disease) HLD (hyperlipidemia) HTN (hypertension) Osteoarthritis Osteoporosis Spinal stenosis Past Family History Family History Other No family history of adverse response to anesthesia Past Surgical History Surgical History History of appendectomy History of History of carpal tunnel release History of cervical spinal surgery History of cholecystectomy History of colonoscopy History of esophagogastroduodenoscopy (EGD) History of lumbar surgery History of tonsillectomy History of total abdominal hysterectomy and bilateral salpingo-oophorectomy History of wisdom tooth extraction Social History Smoking Status: Former smoker Do You Dip or Chew Tobacco: No Hx Alcohol Use: No Hx Substance Use: No substance use type: does not use Testing Electrocardiogram Date: 02/04/21 Findings: + NSR @
--- NOTE | 2023-09-22 17:46 | Consultation ---
Date of Consultation September 22, 2023 Assessment & Plan (1) Neurogenic claudication due to lumbar spinal stenosis: Plan Ms. Flores Mederos is a 63 year old with HLD, chronic pain 2/2 neurogenic claudication and osteoarthritis, HTN, depression, GERD, who is being admitted to Ortho Spine service for T9-T12 decompression and fusions, as well as T12-L2 hardware removal. Patient is hemodynamically stable and labs with hemoglobin of 12.1. Renal function suggestive of CKD II at this time with no recently baseline in last year to compare. #Neurogenic claudication due to lumbar stenosis -s/p decompression and fusion on , pain/symptoms returned prompting planned revision tomorrow -Monitor post-operative CBC for appropriate blood loss, transfuse hgb <7.0 Pain management per primary service RCRI Class I risk Tizanidine 4mg TID home regimen to baclofen 10mg TID Gabapentin 600mg TID #HTN Hold home Lisinopril 10mg, resume as appropriate postoperatively #CKDII No recent baseline for comparison, Cr. 0.92; gentle hydration per primary #history of lichen planus in mouth sores intermittently appear, no precipitating cause she can identify -Dexamethasone rinse 0.5mg prn #Depression Sertraline 150mg evening Buprion 300mg morning #Allergic rhinitis -Albuterol and Loratadine prn during seasonal periods -Singulair qam #GERD Omeprazole 20mg qam, famotidine 20mg noon, ranitidine 150mg qpm #HLD -Rosuvastatin 20mg qpm DVT ppx per primary service [facility] We will continue to follow patient throughout her admission. Please feel free to TigerText for any questions or concerns. I spent a total of 45 minutes coordinating, documenting, and providing care for this patient excluding time spent in the performance of separately billed services. History of Present Illness Reason for Consultation: Comanagement,periopertaive Attending Physician: Alonzo Pederson, DO History of Present Illness Ms. Flores Mederos is a 63 year old with HLD, chronic pain 2/2 neurogenic claudication and osteoarthritis, HTN, depression, GERD, who is being admitted to Ortho Spine service for T9-T12 decompression and fusions, as well as T12-L2 hardware removal. Medicine consulted for perioperative management. Patient states that her health is at baseline outside of ongoing burning pain in her back and issues with right leg pain. She states she take her medications as prescribed and denies any SOB/ROSS, chest pain, palpitations, or other concerns. She denies any tobacco use or alcohol use. Allergies Allergy/AdvReac Type Severity Reaction Status Date / Time ciprofloxacin [From Cipro] AdvReac Abdominal Verified 09/22/23 18:30 Pain Home Medications Medication Instructions Recorded Confirmed Type bupropion HCl 300 mg 24 hr tablet, 300 mg PO QAM 01/28/21 09/22/23 History extended release (Wellbutrin XL) dexamethasone 0.5 mg/5 mL oral 0.5 mg PO BID 01/28/21 09/22/23 History elixir famotidine 20 mg tablet (Pepcid) 20 mg PO BID 01/28/21 09/22/23 History gabapentin 600 mg tablet 600 mg PO TID 01/28/21 09/22/23 History hydrocodone 10 mg-acetaminophen 1 tab PO QID PRN Pain 01/28/21 09/22/23 History 325 mg tablet magnesium 250 mg tablet 250 mg PO PM 01/28/21 09/22/23 History montelukast 10 mg tablet 10 mg PO QAM 01/28/21 09/22/23 History (Singulair) gnqywxlahhuz-dielwkdh-gdhaby tablet 1 tab PO QAM 01/28/21 09/22/23 History omega-3 fatty acids-vitamin E 2 cap PO QPM 01/28/21 09/22/23 History 1,000 mg capsule omeprazole 40 mg capsule,delayed 40 mg PO QAM 01/28/21 09/22/23 History release potassium 99 mg tablet 99 mg PO QPM 01/28/21 09/22/23 History rosuvastatin 20 mg tablet (Crestor) 20 mg PO PM 01/28/21 09/22/23 History Patient History Medical History Anxiety DDD (degenerative disc disease) Depression Diverticulosis GERD (gastroesophageal reflux disease) HLD (hyperlipidemia) HTN (hypertension) Osteoarthritis Osteoporosis Spinal stenosis Surgical History History of appendectomy History of History of carpal tunnel release History of cervical spinal surgery History of cholecystectomy History of colonoscopy History of esophagogastroduodenoscopy (EGD) History of lumbar surgery History of tonsillectomy History of total abdominal hysterectomy and bilateral salpingo-oophorectomy History of wisdom tooth extraction Family History Other No family history of adverse response to anesthesia Social History Smoking Status: Former smoker Second Hand Exposure: No; Do You Dip or Chew Tobacco: No; Hx Alcohol Use: No Hx Substance Use: No Preferred Language: Ukrainian Communication Ability: Effective 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 Beliefs That Will Affect Care: None marital status: / Current Living Situation: Alone Other Information That Helps Us Care for You: No Feels Safe at Home: Yes Safety Concerns: Feels Safe At This Time Assistive Devices: Glasses and Walker Review of Systems Review of Systems: All systems reviewed & are unremarkable except as noted in Subjective Physical Exam Constitutional: WD/WN, vitals as above Respiratory: normal respiratory effort, lungs clear to auscultation Cardiovascular: RRR, no murmur, no edema Gastrointestinal (Abdomen): normal bowel sounds, soft, nontender, no hepatosplenomegaly Musculoskeletal: moving all extremities equally, strength intact Results & Data Vital Signs (Past 12 Hours) Short CBC 09/22/23 Range/Units 17:44 WBC 8.94 (4.8-10.8) K/ul Hgb 12.1 (12.0-16.0) g/dl Hct 35.5 L (37.0-47.0) % Plt Count 232 (130-400) K/uL BMP 09/22/23 17:44 Sodium 137 Potassium 4.0 Chloride 101 Carbon Dioxide 26 BUN 11 Creatinine 0.94 Glucose 113 H Calcium 9.2 Liver Function 09/22/23 Range/Units 17:44 Total Bilirubin 0.4 (0.2-1.0) mg/dl AST 17 (13-39) U/L ALT 11 (7-52) U/L Alkaline Phosphatase 71 (34-104) U/L Albumin 4.4 (3.4-5.0) gm/dl Laboratory Results Short CBC 09/22/23 Range/Units 17:44 WBC 8.94 (4.8-10.8) K/ul Hgb 12.1 (12.0-16.0) g/dl Hct 35.5 L (37.0-47.0) % Plt Count 232 (130-400) K/uL BMP 09/22/23 17:44 Sodium 137 Potassium 4.0 Chloride 101 Carbon Dioxide 26 BUN 11 Creatinine 0.94 Glucose 113 H Calcium 9.2 Liver Function 09/22/23 Range/Units 17:44 Total Bilirubin 0.4 (0.2-1.0) mg/dl AST 17 (13-39) U/L ALT 11 (7-52) U/L Alkaline Phosphatase 71 (34-104) U/L Albumin 4.4 (3.4-5.0) gm/dl Medications Administered Home Medications Medication Instructions Recorded Confirmed Last Taken aspirin 81 mg tablet,delayed 81 mg PO QPM 01/28/21 02/19/21 02/12/21 release baclofen 10 mg tablet 10 mg PO TID 01/28/21 02/19/21 02/18/21 19:30 bupropion HCl 300 mg 24 hr tablet, 300 mg PO QAM 01/28/21 02/19/21 02/19/21 05:30 extended release (Wellbutrin XL) celecoxib 200 mg capsule (Celebrex) 200 mg PO QAM 01/28/21 02/19/21 02/12/21 dexamethasone 0.5 mg/5 mL oral 0.5 mg PO BID 01/28/21 02/19/21 02/18/21 08:00 elixir famotidine 20 mg tablet (Pepcid) 20 mg PO BID 01/28/21 02/19/21 02/19/21 05:30 fluocinonide 0.05 % topical 1 applic topical BID PRN ud 01/28/21 02/19/21 02/18/21 08:00 ointment gabapentin 600 mg tablet 600 mg PO TID 01/28/21 02/19/21 02/19/21 05:30 hydrocodone 10 mg-acetaminophen 1 tab PO QID PRN Pain 01/28/21 02/19/21 02/19/21 05:30 325 mg tablet magnesium 250 mg tablet 250 mg PO PM 0602/19/21 02/12/21 montelukast 10 mg tablet 10 mg PO QAM 01/28/21 02/19/21 02/18/21 08:00 (Clint) lvimicjipuyy-opnolhxl-albwzz tablet 1 tab PO QAM 01/28/21 02/19/21 02/18/21 08:00 omega-3 fatty acids-vitamin E 2 cap PO QPM 01/28/21 02/19/21 02/12/21 1,000 mg capsule omeprazole 40 mg capsule,delayed 40 mg PO QAM 01/28/21 02/19/21 02/18/21 08:00 release potassium 99 mg tablet 99 mg PO QPM 01/28/21 02/19/21 02/18/21 rosuvastatin 20 mg tablet (Crestor) 20 mg PO PM 01/28/21 02/19/21 02/18/21 20:00
--- NOTE | 2023-09-22 17:51 | XRay Report ---
XR chest 2V PA/lateral HISTORY: Pre op COMPARISON: Chest 02/04/2021. FINDINGS: The lungs are clear. The heart is normal in size. No pleural effusions. No pneumothorax. No acute fractures. Cervical and lumbar spinal fusion hardware is partially visualized. Prior cholecyst ectomy. There is a thoracic spinal leads noted. Degenerative changes within the thoracic spine. IMPRESSION: No acute process. ACT 112: Negative or not required by law. Electronically signed by: Felipe Raines M.D. 09/22/2023 5:50 PM
[2023-09-22 18:06] LABS: Basophils # (auto) 0.05 K/uL (0.00-0.20); Basophils % (auto) 0.6 %; Eosinophils # (auto) 0.12 K/uL (0.00-0.50); Eosinophils % (auto) 1.3 %; Hematocrit (blood only) 35.5 % (37.0-47.0); Hemoglobin 12.1 g/dl (12.0-16.0); Immature Granulocytes # (auto) 0.02 K/uL (0.01-0.20); Immature Granulocytes % (auto) 0.2 %; Lymphocytes # (auto) 3.05 K/uL (1.20-3.40); Lymphocytes % (auto) 34.1 %; Mean Corpuscular Hemoglobin 30.9 pg (25.0-34.0); Mean Corpuscular Hgb Conc 34.1 g/dL (32.0-36.0); Mean Corpuscular Volume 90.6 fL (80.0-100.0); Monocytes # (auto) 0.56 K/uL (0.11-0.59); Monocytes % (auto) 6.3 %; Neutrophils # (auto) 5.14 K/uL (1.40-6.50); Neutrophils % (auto) 57.5 %; Platelet Count 232 K/uL (130-400); RDW Standard Deviation 42.8 fL (36.4-46.3); Red Blood Count 3.92 M/uL (4.20-5.40); White Blood Count 8.94 K/ul (4.8-10.8)
[2023-09-22 18:23] LABS: Albumin Globulin Ratio 1.3 (0.9-2); Albumin Level 4.4 gm/dl (3.4-5.0); BUN Creatinine Ratio 11.7 (10-20); Bilirubin,Total 0.4 mg/dl (0.2-1.0); Calcium 9.2 mg/dl (8.6-10.3); Creatinine Clr Calc Pharmacy 62.7 ml/min; Est GFR (African American) 73.8 ml/min; Est GFR (Non-African American) 63.7 ml/min; Globulin 3.4 gm/dl (2.5-4.0); Total Protein 7.8 gm/dl (6.0-8.3)
[2023-09-22] MEDS ORDERED: dexAMETHasone 2 MG/20 ML UDP PO PRN (18:50)
[2023-09-22] MEDS: LACTATED RINGER'S 1,000 ML IV SCH (18:56)
[2023-09-22] MEDS: GABAPENTIN 600 MG TAB PO SCH (20:08)
[2023-09-22] MEDS: FAMOTIDINE 20 MG TAB PO SCH ×2 (20:08)
[2023-09-22] MEDS: ROSUVASTATIN CALCIUM 20 MG TAB PO SCH (20:08)
[2023-09-22] MEDS: MAGNESIUM OXIDE 400 MG TAB PO SCH (20:08)
[2023-09-22] MEDS: tiZANidine HCL 4 MG TABLET PO SCH (20:09)
[2023-09-22] MEDS: SERTRALINE HCL 50 MG TABLET PO SCH (20:09)
[2023-09-22] MEDS: oxyCODONE HCL IR 5 MG TAB (IMMEDIATE RELEASE) PO PRN (20:16)
[2023-09-22] MEDS: ACETAMINOPHEN 500 MG TAB PO PRN (20:16)
[2023-09-22] MEDS ORDERED: BACLOFEN 10 MG TAB PO SCH (21:00)
--- NOTE | 2023-09-23 08:01 | History & Physical Report ---
Date of Service September 23, 2023 Assessment & Plan (1) Myelopathy concurrent with and due to spinal stenosis of thoracic region: Plan: Assessment thoracic spinal stenosis with myelopathy. Plan MRI lumbar spine demonstrates severe spinal stenosis secondary to disc protrusion and arthritis T10-T11 causing severe cord compression and myelopathy. Subsequently recommending emergent decompression. Surgery require decompression fusion T9- T10 with instrumented fusion T9-T12 and removal instrumentation T12-L2. Admission and Anticipated Discharge Date Admission Date: September 22, 2023 History of Present Illness Chief Complaint: Bilateral leg weakness numbness and tingling. Primary Care Provider: Flores Mayfield MD This is a 63-year-old female that presents to our office yesterday for follow-up on MRI. She been having significant decline in function over the past several weeks with loss of ability to ambulate with a markedly unsteady gait numbness and tingling in bilateral extremities. MRI demonstrates evidence severe spinal stenosis at T10 and T11 with marked cord compression. Subsequent she was admitted on for urgent surgical intervention. Allergies Allergy/AdvReac Type Severity Reaction Status Date / Time ciprofloxacin [From Cipro] AdvReac Abdominal Verified 09/22/23 18:30 Pain Home Medications Medication Instructions Recorded Confirmed Type bupropion HCl 300 mg 24 hr tablet, 300 mg PO QAM 01/28/21 09/22/23 History extended release (Wellbutrin XL) dexamethasone 0.5 mg/5 mL oral 0.5 mg PO BID 01/28/21 09/22/23 History elixir famotidine 20 mg tablet (Pepcid) 20 mg PO BID 01/28/21 09/22/23 History gabapentin 600 mg tablet 600 mg PO TID 01/28/21 09/22/23 History hydrocodone 10 mg-acetaminophen 1 tab PO QID PRN Pain 01/28/21 09/22/23 History 325 mg tablet magnesium 250 mg tablet 250 mg PO PM 01/28/21 09/22/23 History montelukast 10 mg tablet 10 mg PO QAM 01/28/21 09/22/23 History (Singulair) vkiecmplaabo-sevlwkoj-kjdpbr tablet 1 tab PO QAM 01/28/21 09/22/23 History omega-3 fatty acids-vitamin E 2 cap PO QPM 01/28/21 09/22/23 History 1,000 mg capsule omeprazole 40 mg capsule,delayed 40 mg PO QAM 01/28/21 09/22/23 History release potassium 99 mg tablet 99 mg PO QPM 01/28/21 09/22/23 History rosuvastatin 20 mg tablet (Crestor) 20 mg PO PM 01/28/21 09/22/23 History Past Med/Surg History Medical History Anxiety DDD (degenerative disc disease) Depression Diverticulosis GERD (gastroesophageal reflux disease) HLD (hyperlipidemia) HTN (hypertension) Osteoarthritis Osteoporosis Spinal stenosis Surgical History History of appendectomy History of History of carpal tunnel release History of cervical spinal surgery History of cholecystectomy History of colonoscopy History of esophagogastroduodenoscopy (EGD) History of lumbar surgery History of tonsillectomy History of total abdominal hysterectomy and bilateral salpingo-oophorectomy History of wisdom tooth extraction Family History Other No family history of adverse response to anesthesia Social History Smoking Status: Former smoker Second Hand Exposure: No; Do You Dip or Chew Tobacco: No; Hx Alcohol Use: No Hx Substance Use: No Preferred Language: French Communication Ability: Effective 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 Sensory is diminished to light touch and cold bilateral extremities. Results & Data Results & Data Vital Signs (Past 12 Hours) Vital Signs Temp Pulse Resp BP Pulse Ox O2 Del Method 09/23/23 07:53 36.7 C 69 17 136/73 94 Room Air 09/22/23 20:23 36.5 C 65 16 155/75 H 95 Room Air
[2023-09-23] MEDS: buPROPion XL 300 MG TABCR PO SCH (09:01)
[2023-09-23] MEDS: MONTELUKAST SODIUM 10 MG TABLET PO SCH (09:01)
[2023-09-23] MEDS: PANTOprazole 40 MG TAB PO SCH (09:01)
--- NOTE | 2023-09-23 09:20 | Hospitalist Progress Note ---
Date of Service September 23, 2023 Assessment & Plan (1) Neurogenic claudication due to lumbar spinal stenosis: Plan Ms. Flores Mederos is a 63 year old with HLD, chronic pain 2/2 neurogenic claudication and osteoarthritis, HTN, depression, GERD, who is being admitted to Ortho Spine service for T9-T12 decompression and fusions, as well as T12-L2 hardware removal. Patient is hemodynamically stable and labs with hemoglobin of 12.1. Renal function suggestive of CKD II at this time with no recently baseline in last year to compare. Neurogenic claudication due to lumbar stenosis -s/p decompression and fusion on , pain/symptoms returned prompting planned revision today -Monitor post-operative CBC for appropriate blood loss, transfuse hgb <7.0 Pain management per primary service RCRI Class I risk Tizanidine 4mg TID home regimen Gabapentin 600mg TID HTN Hold home Lisinopril 10mg, resume as appropriate postoperatively CKDII No recent baseline for comparison, Cr. 0.92; gentle hydration per primary #history of lichen planus in mouth sores intermittently appear, no precipitating cause she can identify -Dexamethasone rinse 0.5mg prn #Depression Sertraline 150mg evening Buprion 300mg morning Allergic rhinitis -Albuterol and Loratadine prn during seasonal periods -Singulair qam GERD Omeprazole 20mg qam, famotidine 20mg noon, ranitidine 150mg qpm HLD -Rosuvastatin 20mg qpm DVT ppx per primary service [facility] We will continue to follow patient throughout her admission. Please feel free to [employer]Text for any questions or concerns. Admission and Anticipated Discharge Date Admission Date: September 22, 2023 Subjective Pt seen in follow up of med consult pt s/p spinal surgery Laying in bed in NAD, reports her legs already feel better after surgery No chest pain, shortness of breath, no nausea no fever, chills, no abd. pain Review of Systems Review of Systems: All systems reviewed & are unremarkable except as noted in Subjective Physical Exam Physical Exam: Constitutional: WD/WN, in NAD Respiratory: normal respiratory effort, lungs gagandeep ar to auscultation Cardiovascular: RRR, no murmur, no edema Gastrointestinal ( Abdomen): normal bowel sound s, soft, nontender Musculoskeletal: moving all extrem ities Results & Data Results & Data Vital Signs (Past 12 Hours) Vital Signs Temp Pulse Resp BP Pulse Ox O2 Del Method 09/23/23 07:53 36.7 C 69 17 136/73 94 Room Air Laboratory Results 09/23/23 09/22/23 09/22/23 Range/Units 06:14 23:27 17:44 WBC 8.94 (4.8-10.8) K/ul RBC 3.92 L (4.20-5.40) M/uL Hgb 12.1 (12.0-16.0) g/dl Hct 35.5 L (37.0-47.0) % MCV 90.6 (80.0-100.0) fL MCH 30.9 (25.0-34.0) pg MCHC 34.1 (32.0-36.0) g/dL RDW Std Deviation 42.8 (36.4-46.3) fL RDW Coeff of Farzaneh 13.0 (11.5-14.5) % Plt Count 232 (130-400) K/uL MPV 11.0 (9.4-12.4) fL Immature Gran % (Auto) 0.2 % Neut % (Auto) 57.5 % Lymph % (Auto) 34.1 % [place] % (Auto) 6.3 % Eos % (Auto) 1.3 % Baso % (Auto) 0.6 % Neut # (Auto) 5.14 (1.40-6.50) K/uL Lymph # (Auto) 3.05 (1.20-3.40) K/uL [place] # (Auto) 0.56 (0.11-0.59) K/uL Eos # (Auto) 0.12 (0.00-0.50) K/uL Baso # (Auto) 0.05 (0.00-0.20) K/uL Immature Gran # (Auto) 0.02 (0.01-0.20) K/uL Sodium 137 (136-145) mmol/L Potassium 4.0 (3.5-5.1) mmol/L Chloride 101 (98-107) mmol/L Carbon Dioxide 26 (21-32) mmol/L Anion Gap 10 (3-11) BUN 11 (6-23) mg/dl Creatinine 0.94 (0.6-1.2) mg/dl Est Cr Clr Drug Dosing 62.7 ml/min Est GFR ( Amer) 73.8 ml/min Est GFR (Non-Af Amer) 63.7 ml/min BUN/Creatinine Ratio 11.7 (10-20) Glucose 113 H (70-99(Fasting)) mg/dl POC Glucose 96 107 H (70-99) mg/dl Calcium 9.2 (8.6-10.3) mg/dl Total Bilirubin 0.4 (0.2-1.0) mg/dl AST 17 (13-39) U/L ALT 11 (7-52) U/L Alkaline Phosphatase 71 (34-104) U/L Total Protein 7.8 (6.0-8.3) gm/dl Albumin 4.4 (3.4-5.0) gm/dl Globulin 3.4 (2.5-4.0) gm/dl Albumin/Globulin Ratio 1.3 (0.9-2) Blood Type A Positive Antibody Screen NEGATIVE Medications Administered Current Inpatient Medications Acetaminophen (Acetaminophen 500 Mg Tab) 1,000 mg PO Q8H PRN PRN Reason: MILD Pain Scale 1,2,3 & Pre PT Stop: 10/22/23 15:52 Last Admin: 09/23/23 03:17 Dose: 1,000 mg Bupropion HCl (Bupropion Xl 300 Mg Tabcr) 300 mg PO QAM [facility] Stop: 10/23/23 08:59 Last Admin: 09/23/23 09:01 Dose: 300 mg Dexamethasone (Dexamethasone 2 Mg/20 Ml Udp) 0.5 mg PO Q6H PRN PRN Reason: mouth sores Stop: 10/22/23 18:59 Diphenhydramine HCl (Diphenhydramine Capsule 25 Mg Cap) 25 mg PO Q6H PRN PRN Reason: Allergic Rhinitis/Insomnia Stop: 10/22/23 15:52 Famotidine (Famotidine 20 Mg Tab) 20 mg PO BID [facility] Stop: 10/22/23 20:59 Last Admin: 09/23/23 09:00 Dose: 20 mg Famotidine (Famotidine 20 Mg Tab) 20 mg PO QPM [facility] Stop: 10/22/23 20:59 Last Admin: 09/22/23 20:08 Dose: 20 mg Gabapentin (Gabapentin 600 Mg Tab) 600 mg PO TID [facility] Stop: 10/22/23 20:59 Last Admin: 09/23/23 09:01 Dose: 600 mg Hydromorphone HCl (Hydromorphone Inj 0.5 Mg/0.5 Ml Syr) 0.5 mg IV Q3H PRN PRN Reason: MOD pain (scale 4-6) & Pre PT Stop: 10/06/23 15:52 Lactated Ringer's (Lr) 1,000 mls @ 75 mls/hr IV .[id number] [facility] Stop: 10/22/23 15:59 Last Admin: 09/23/23 08:07 Dose: 75 mls/hr Promethazine HCl 12.5 mg/ (Sodium Chloride) 50.5 mls @ 202 mls/hr IV Q6H PRN PRN Reason: Nausea &/or Vomiting Stop: 10/22/23 15:52 Acetaminophen (Ofirmev) 1,000 mg in 100 mls @ 400 mls/hr IV Q8H PRN PRN Reason: Pain Rating 1-3 & Pre PT Stop: 09/23/23 15:53 Cefazolin Sodium (Ancef 2000mg) 2,000 mg in 15 mls @ 3.75 mls/min IV PREOP MICHELLE; Protocol Stop: 09/24/23 05:59 Lorazepam 0.5 mg/ Syringe 0.5 mls @ 2 mls/min IV Q8H PRN; Protocol PRN Reason: Sedation/Anxiety Stop: 10/22/23 15:52 Magnesium Oxide (Magnesium Oxide 400 Mg Tab) 400 mg PO PM [facility] Stop: 10/22/23 20:59 Last Admin: 09/22/23 20:08 Dose: 400 mg Montelukast Sodium (Montelukast Sodium 10 Mg Tablet) 10 mg PO QAM [facility] Stop: 10/23/23 08:59 Last Admin: 09/23/23 09:01 Dose: 10 mg Naloxone HCl (Naloxone Hcl 0.4 Mg/1 Ml Vial/Carp) 0.1 mg IV Q5M PRN PRN Reason: Oversedation/respiratory dep Stop: 10/22/23 15:52 Ondansetron HCl (Ondansetron Inj 2 Mg/Ml 2 Ml Vial) 4 mg IV Q6H PRN PRN Reason: Nausea &/or Vomiting Stop: 10/22/23 15:52 Ondansetron HCl (Ondansetron 4 Mg Od Tab) 4 mg PO Q6H PRN PRN Reason: Nausea Stop: 10/22/23 15:52 Oxycodone HCl (Oxycodone Hcl Ir 5 Mg Tab (Immediate Release)) 5 - 10 mg PO Q4H PRN PRN Reason: mod to severe pain Stop: 10/06/23 15:52 Last Admin: 09/23/23 09:05 Dose: 10 mg Pantoprazole Sodium (Pantoprazole 40 Mg Tab) 40 mg PO QAM [facility] Stop: 10/23/23 08:59 Last Admin: 09/23/23 09:01 Dose: 40 mg Rosuvastatin Calcium (Rosuvastatin Calcium 20 Mg Tab) 20 mg PO PM [facility] Stop: 10/22/23 20:59 Last Admin: 09/22/23 20:08 Dose: 20 mg Sertraline HCl (Sertraline Hcl 50 Mg Tablet) 150 mg PO QPM [facility] Stop: 10/22/23 20:59 Last Admin: 09/22/23 20:09 Dose: 150 mg Tizanidine HCl (Tizanidine Hcl 4 Mg Tablet) 4 mg PO TID [facility] Stop: 10/22/23 20:59 Last Admin: 09/23/23 09:00 Dose: 4 mg Tramadol HCl (Tramadol Hcl 50 Mg Tablet) 50 - 100 mg PO Q4H PRN PRN Reason: Moderate-Severe pain & Pre PT Stop: 10/22/23 15:52
[2023-09-23] MEDS ORDERED: ONDANSETRON INJ 2 MG/ML 2 ML VIAL IV PRN ×2 (10:44→16:33)
[2023-09-23] MEDS ORDERED: ePHEDrine sulfate 50 MG/ML AMP IV PRN (10:44)
[2023-09-23] MEDS ORDERED: ATROPINE SULFATE 0.1 MG/ML 10ML SYR IV PRN (10:44)
--- NOTE | 2023-09-23 10:45 | Electrocardiogram Report ---
Test Reason : Blood Pressure : / mmHG Vent. Rate : 072 BPM Atrial Rate : 072 BPM P-R Int : 182 ms QRS Dur : 078 ms QT Int : 440 ms P-R-T Axes : 021 028 028 degrees QTc Int : 481 ms Normal sinus rhythm Diffuse Minor Nonspecific ST abnormality Abnormal ECG When compared with ECG of 04-FEB-2021 11:23, No significant change was found Confirmed by Garrick Gong ([id number]) on 09/23/2023 10:44:59 AM Referred By: Alonzo Pederson Confirmed By:Garrick Gong
[2023-09-23] MEDS ORDERED: fentaNYL citrate PF 100 MCG/2 ML VIAL ONE (11:29)
[2023-09-23] MEDS ORDERED: MIDAZOLAM HCL 1 MG/ML 2ML VIAL ONE (11:29)
[2023-09-23] MEDS ORDERED: KETAMINE HCL 10MG/ML SYR ONE (11:40)
[2023-09-23] MEDS ORDERED: DexMEDEtomidine HCL IV 100 MCG/ML VIAL IV ONE (11:41)
--- NOTE | 2023-09-23 11:43 | History & Physical Bridge Note ---
Date of Service September 23, 2023 History & Physical Bridge Note I have examined the patient, reviewed the History & Physical and in the interval since the performance of the History & Physical I have noted the following changes of clinical significance: no changes noted T9-T12 decompression and fusion hardware removal T12 - L2
[2023-09-23] MEDS: ceFAZolin 2000MG 2,000 MG/15 ML SYR IV SCH ×2 (12:13→21:31)
[2023-09-23] MEDS ORDERED: ONDANSETRON INJ 2 MG/ML 2 ML VIAL ONE (12:37)
[2023-09-23] MEDS ORDERED: DEXAMETHASONE SOD INJ 4 MG/ML VIAL ONE (12:37)
[2023-09-23] MEDS ORDERED: PROPOFOL IV EMULSION 10 MG/ML 20 ML VIAL IV ONE (12:37)
[2023-09-23] MEDS ORDERED: ROCURONIUM BROMIDE 10 MG/ML 5 ML VIAL IV ONE ×3 (12:37→13:59)
[2023-09-23] MEDS ORDERED: HYDROmorphone INJ 2 MG/ML SYR/VIAL ONE (12:42)
[2023-09-23] MEDS ORDERED: ePHEDrine sulfate 50 MG/5 ML SYR ONE (12:50)
[2023-09-23] MEDS ORDERED: LARYING-O-JET KIT (LTA) ONE (12:50)
[2023-09-23] MEDS: BUPIVACAINE/EPINEPHRINE 0.5% MPF 1:200,000 30 ML VIAL ONE (12:51)
[2023-09-23] MEDS: ceFAZolin 330 MG/ML 1 GM VIAL ONE (13:07)
[2023-09-23] MEDS ORDERED: PHENYLEPHRINE 100MCG/ML 10ML SYR IV ONE (13:36)
--- NOTE | 2023-09-23 14:32 | Operative Report ---
Post Operative Report Pre & Post Diagnosis Operation Date: 09/23/23 07:00 Pre-Op Diagnosis: Myelopathy concurrent with and due to spinal stenosis of thoracic region Post-Op Diagnosis: Myelopathy concurrent with and due to spinal stenosis of thoracic region I identified the patient and participated in the time-out.: Yes Procedure Operation Date: 09/23/23 07:00 Actual Procedures #1 removal of posterior instrumentation T12-L2. #2 exploration of fusion T12- L2. #3 decompression T9-T10 T10-T11. #4 removal of spinal cord stimulator paddle and battery. #5 posterior spinal fusion T9-T12. #6 placement posterior segmental instrumentation T9-L1. #7 placement for collagen sponge combined with Koros bone graft in the posterior gutters T9-L1. Surgeon Alonzo Pederson, DO Health Care Analyst Kalyani Jamil Estimated Blood Loss 250 Findings See Below The patient is 5 foot 3 weighing over 87 kg a BMI in excess of 34. Patient's body habitus did contribute to significant technical difficulty adding at least 50% increased operative time. Specimens None Indications This is a 63-year-old female who presents to our office with a marked decline in status consistent with myelopathy. MRI imaging demonstrates severe spinal stenosis T10-T11 and is here for emergent decompression Description of Procedure Patient was met with identified informed consent obtained. Patient was then taken to the operative suite underwent patient placed in a prone position on the Nahid table top of the Reg frame. All bony promises well-padded eyes inspected to ensure no external precipice spinal. This point the thoracolumbar spine was prepped and draped no sterile fashion. Sharp dissection with the assistance of Bovie cautery was performed down to and exposing the lamina and transverse processes of T9-T10 and T11 and instrumentation from T12-L2. I then removed the instrumentation T11-L2 and its connection to the barrel connector. Explored the fusion mass noted to be intact. Informed complete laminectomy of T10 partial laminectomy of T9 including bilateral male facetectomies and foraminotomies for complete decompression. I did remove the spinal cord stimulator paddle and subsequent battery in the right pocket. Pedicle screws were then placed in T9 [id number] and L1 bilaterally with assistance of fluoroscopy and the properly sized edgar contoured and locked into position utilizing the barrel connectors. The transverse processes of T9 [id number] and L1 burred to subcortical white bone. Infuse collagen sponge, with Koros bone graft placed in the posterior gutters. 15 round SHAY drain inserted. The incision was then closed with 1 Vicryl fascia 2-0 Vicryl subcutaneously and 4 Monocryl for final skin closure. Steri-Strips sterile dressings placed. Patient was then taken to PACU stable condition. Please note spinal cord monitoring was utilized at the procedure no changes noted. Michelle Jamil was present at the entire surgery and while the patient positioning complex portion of the surgery and final skin closure. I attest to the content of the Intraoperative Record and any orders documented therein. Any exceptions are noted below.
[2023-09-23] MEDS ORDERED: SUGAMMADEX SODIUM 200 MG/2 ML VIAL IV ONE (14:37)
[2023-09-23] MEDS: FLOSEAL HEMOSTATIC MATRIX 10ML TOP ONE (14:41)
--- NOTE | 2023-09-23 15:05 | Fluoroscopy Report ---
FL thoracic spine 2V CLINICAL HISTORY: T9-T12 decompression/fusion, T12-L2 hardware removal COMPARISON STUDY: Thoracolumbar spine radiographs March 17, 2022. MRI of the lumbar spine August. Thoracic spine MRI September 17, 2023. FLUOROSCOPY TIME: 29 seconds. Ka, r: 10.54 mGy FLUOROSCOPIC IMAGES: 4 FINDINGS: Exact localization is difficult given partial visualization of the lumbar spine. Fluoroscop y was provided during hardware removal and subsequent multilevel decompression and fusion. Visualized portions of the hardware are intact. IMPRESSION: Fluoroscopy provided during hardware removal and subsequent multilevel decompression and fusion. ACT 112: Negative or not required by law. Electronically signed by: Malik Lopez M.D. 09/23/2023 3:03 PM
--- NOTE | 2023-09-23 15:10 | Anesthesiology Progress Note ---
Date of Service September 23, 2023 Anesthesia Post Procedure Vital Signs Vital Signs: Temp Pulse Resp BP Pulse Ox O2 Del Method 09/23/23 10:07 37.2 C 82 20 149/75 H 96 Room Air 09/23/23 07:53 36.7 C 69 17 136/73 94 Room Air 09/22/23 20:23 36.5 C 65 16 155/75 H 95 Room Air Pain Intensity Back: Pain Intensity: 3 Transfer of Care Handoff Completed per policy Notes Mental Status: alert / awake / arousable Patient Amnestic to Procedure: Yes Nausea / Vomiting: adequately controlled Pain: adequately controlled Airway Patency, RR, SpO2: stable & adequate BP & HR: stable & adequate Hydration State: stable & adequate Anesthetic Complications: no major complications apparent and Pt Satisfied with anesthetic care
[2023-09-23] MEDS: HYDROmorphone INJ 1 MG/ML SYRINGE IV PRN ×2 (15:15→17:34)
[2023-09-23] MEDS ORDERED: MAGNESIUM HYDROXIDE SUSP 30 ML UDC PO PRN (16:33)
[2023-09-23] MEDS ORDERED: SOD PHOSPHATE/SOD BIPHOSPHATE ENEMA 132 ML BTL PR PRN (16:33)
[2023-09-23] MEDS ORDERED: DO NOT ADMINISTER PNEUMOCOCCAL VACCINE PRN (16:33)
[2023-09-23] MEDS ORDERED: ACETAMINOPHEN 1,000 MG/100 ML VIAL IV PRN (16:33)
[2023-09-23] MEDS ORDERED: NALOXONE HCL 0.4 MG/1 ML VIAL/CARP IV PRN (16:33)
[2023-09-23] MEDS ORDERED: LORazepam 0.5 MG in SYRINGE 0.25 ML IV PRN (16:33)
[2023-09-23] MEDS ORDERED: hydrOXYzine HCl 25 MG TAB PO PRN (16:33)
[2023-09-23] MEDS ORDERED: FAMOTIDINE 20 MG TAB PO PRN (16:33)
[2023-09-23] MEDS ORDERED: HYDROmorphone INJ 0.5 MG/0.5 ML SYR IV PRN (16:33)
[2023-09-23] MEDS ORDERED: diphenhydrAMINE Capsule 25 MG CAP PO PRN (16:33)
[2023-09-23] MEDS ORDERED: METOCLOPRAMIDE HCL INJ 5 MG/ML 2 ML VIAL IV PRN (16:33)
[2023-09-23] MEDS ORDERED: LORazepam 0.5 MG TAB PO PRN (16:33)
[2023-09-23] MEDS ORDERED: ONDANSETRON 4 MG OD TAB PO PRN (16:33)
[2023-09-23] MEDS ORDERED: PROMETHAZINE HCL 12.5 MG in SODIUM CHLORIDE 0.9% 50 ML IV PRN (16:33)
[2023-09-23] MEDS ORDERED: DO NOT ADMINISTER FLU VACCINE PRN (16:33)
[2023-09-23] MEDS ORDERED: bisacodyL 10 MG SUPP PR PRN (16:33)
[2023-09-23] MEDS ORDERED: traMADol HCL 50 MG TABLET PO PRN (16:33)
[2023-09-23] MEDS ORDERED: ALUMINUM/MAGNESIUM SUSP 30 ML UDC PO PRN (16:33)
[2023-09-23] MEDS: LACTATED RINGER'S 1,000 ML IV SCH (16:45)
[2023-09-23] MEDS: dexAMETHasone 6 MG in SYRINGE 0 ML IV SCH (20:20)
[2023-09-23] MEDS: DOCUSATE SODIUM/SENNA 50/8.6MG TAB PO SCH (20:24)
[2023-09-24] MEDS: POLYETHYLENE (MIRALAX) 17 GM PACK PO SCH (05:07)
[2023-09-24 07:30] LABS: Calcium 8.4 mg/dl (8.6-10.3); Magnesium 1.9 mg/dl (1.7-2.4); Potassium 4.2 mmol/L (3.5-5.1)
[2023-09-24 07:36] LABS: Basophils # (auto) 0.01 K/uL (0.00-0.20); Basophils % (auto) 0.1 %; Hemoglobin 9.8 g/dl (12.0-16.0); Immature Granulocytes % (auto) 1.9 %; Lymphocytes # (auto) 1.17 K/uL (1.20-3.40); Lymphocytes % (auto) 7.6 %; Mean Corpuscular Hemoglobin 30.9 pg (25.0-34.0); Mean Corpuscular Hgb Conc 32.7 g/dL (32.0-36.0); Mean Corpuscular Volume 94.6 fL (80.0-100.0); Mean Platelet Volume 11.9 fL (9.4-12.4); Monocytes # (auto) 0.89 K/uL (0.11-0.59); Monocytes % (auto) 5.8 %; Neutrophils # (auto) 13.05 K/uL (1.40-6.50); Neutrophils % (auto) 84.6 %; Platelet Count 175 K/uL (130-400); RDW Coefficient of Variation 13.1 % (11.5-14.5); RDW Standard Deviation 45.2 fL (36.4-46.3); Red Blood Count 3.17 M/uL (4.20-5.40); White Blood Count 15.42 K/ul (4.8-10.8)
[2023-09-24 07:38] LABS: Creatinine Clr Calc Pharmacy 93.5 ml/min; Est GFR (African American) 109.1 ml/min; Est GFR (Non-African American) 94.1 ml/min; Phosphorus 3.9 mg/dl (2.5-4.9)
--- NOTE | 2023-09-24 08:50 | Orthopedic Progress Note ---
Date of Service September 24, 2023 Assessment & Plan (1) Myelopathy concurrent with and due to spinal stenosis of thoracic region: Plan: At this time we will initiate physical therapy ambulate as tolerated. Monitor SHAY operatively discharge home this weekend. Admission and Anticipated Discharge Date Admission Date: September 23, 2023 Subjective Back pain much improved leg pain much improved. Physical Exam Physical Exam: Patient seen but bed. She is comfortable. Is excellent strength testing. Results & Data Vital Signs (Past 12 Hours) Vital Signs Temp Pulse Pulse Resp BP BP Pulse Ox 09/24/23 07:22 36.8 C 72 16 111/61 94 09/24/23 03:30 36.6 C 89 18 100/62 93 09/23/23 23:58 36.5 C 74 18 104/61 91 09/23/23 22:07 O2 Del Method 09/24/23 07:22 Room Air 09/24/23 03:30 Room Air 09/23/23 23:58 Room Air 09/23/23 22:07 Room Air Queries Orthopedic Spine Obesity: Yes
--- NOTE | 2023-09-24 14:30 | Hospitalist Progress Note ---
Date of Service September 24, 2023 Assessment & Plan (1) Neurogenic claudication due to lumbar spinal stenosis: Plan Ms. lFores Mederos is a 63 year old with HLD, chronic pain 2/2 neurogenic claudication and osteoarthritis, HTN, depression, GERD, who is being admitted to Orth[facility] Spine service for T9-T12 decompression and fusions, as well as T12-L2 hardware removal. Neurogenic claudication due to lumbar stenosis -s/p decompression and fusion on , pain/symptoms returned prompting planned revision today -Monitor post-operative CBC for appropriate blood loss, transfuse hgb <7.0 Acute blood loss anemia, post-op vs dilutional pre-op Hgb 12.1, current 9.8 - expected, no need for blood transfusion at this time, cont. to monitor H&H Pain management per primary service Tizanidine 4mg TID home regimen Gabapentin 600mg TID HTN Hold home Lisinopril 10mg, resume as appropriate postoperatively CKDII No recent baseline for comparison, Cr. 0.92; gentle hydration per primary #history of lichen planus in mouth sores intermittently appear, no precipitating cause she can identify -Dexamethasone rinse 0.5mg prn #Depression Sertraline 150mg evening Buprion 300mg morning Allergic rhinitis -Albuterol and Loratadine prn during seasonal periods -Singulair qam GERD Omeprazole 20mg qam, famotidine 20mg noon, ranitidine 150mg qpm HLD -Rosuvastatin 20mg qpm DVT ppx per primary service Thank you for consulting [facility]. We will continue to follow patient throughout her admission. Please feel free to [employer] for any questions or concerns. Admission and Anticipated Discharge Date Admission Date: September 23, 2023 Subjective Pt seen in follow up of med consult pt s/p spinal surgery Sitting up in chair in NAD, reports her legs feel a bit week when trying to walk No chest pain, shortness of breath, no nausea, no dizziness no fever, chills, no abd. pain Travis removed today and she is voiding. passing flatus. Review of Systems Review of Systems: All systems reviewed & are unremarkable except as noted in Subjective Physical Exam Physical Exam: Constitutional: WD/WN, in NAD Respiratory: normal respiratory effort, lungs gagandeep ar to auscultation Cardiovascular: RRR, no murmur, no edema Gastrointestinal ( Abdomen): normal bowel sound s, soft, nontender Musculoskeletal: moving all extrem ities Results & Data Results & Data Vital Signs (Past 12 Hours) Vital Signs Temp Pulse Resp BP Pulse Ox O2 Del Method 09/24/23 14:12 36.9 C 78 16 135/77 96 Room Air 09/24/23 11:40 36.7 C 83 16 105/62 93 Room Air 09/24/23 07:22 36.8 C 72 16 111/61 94 Room Air 09/24/23 03:30 36.6 C 89 18 100/62 93 Room Air Laboratory Results 09/24/23 09/24/23 09/24/23 Range/Units 16:50 16:34 11:28 WBC (4.8-10.8) K/ul RBC (4.20-5.40) M/uL Hgb (12.0-16.0) g/dl Hct (37.0-47.0) % MCV (80.0-100.0) fL MCH (25.0-34.0) pg MCHC (32.0-36.0) g/dL RDW Std Deviation (36.4-46.3) fL RDW Coeff of Farzaneh (11.5-14.5) % Plt Count (130-400) K/uL MPV (9.4-12.4) fL Immature Gran % (Auto) % Neut % (Auto) % Lymph % (Auto) % [place] % (Auto) % Eos % (Auto) % Baso % (Auto) % Neut # (Auto) (1.40-6.50) K/uL Lymph # (Auto) (1.20-3.40) K/uL [place] # (Auto) (0.11-0.59) K/uL Eos # (Auto) (0.00-0.50) K/uL Baso # (Auto) (0.00-0.20) K/uL Immature Gran # (Auto) (0.01-0.20) K/uL Sodium (136-145) mmol/L Potassium (3.5-5.1) mmol/L Chloride (98-107) mmol/L Carbon Dioxide (21-32) mmol/L Anion Gap (3-11) BUN (6-23) mg/dl Creatinine (0.6-1.2) mg/dl Est Cr Clr Drug Dosing ml/min Est GFR ( Amer) ml/min Est GFR (Non-Af Amer) ml/min BUN/Creatinine Ratio (10-20) Glucose (70-99(Fasting)) mg/dl POC Glucose 167 H 161 H (70-99) mg/dl Calcium (8.6-10.3) mg/dl Phosphorus (2.5-4.9) mg/dl Magnesium (1.7-2.4) mg/dl SARS-CoV-2, RNA, NAAT NEGATIVE (NEGATIVE) 09/24/23 09/24/23 09/23/23 Range/Units 06:38 05:39 23:51 WBC 15.42 H (4.8-10.8) K/ul RBC 3.17 L (4.20-5.40) M/uL Hgb 9.8 L (12.0-16.0) g/dl Hct 30.0 L (37.0-47.0) % MCV 94.6 (80.0-100.0) fL MCH 30.9 (25.0-34.0) pg MCHC 32.7 (32.0-36.0) g/dL RDW Std Deviation 45.2 (36.4-46.3) fL RDW Coeff of Farzaneh 13.1 (11.5-14.5) % Plt Count 175 (130-400) K/uL MPV 11.9 (9.4-12.4) fL Immature Gran % (Auto) 1.9 % Neut % (Auto) 84.6 % Lymph % (Auto) 7.6 % [place] % (Auto) 5.8 % Eos % (Auto) 0.0 % Baso % (Auto) 0.1 % Neut # (Auto) 13.05 H (1.40-6.50) K/uL Lymph # (Auto) 1.17 L (1.20-3.40) K/uL [place] # (Auto) 0.89 H (0.11-0.59) K/uL Eos # (Auto) 0.00 (0.00-0.50) K/uL Baso # (Auto) 0.01 (0.00-0.20) K/uL Immature Gran # (Auto) 0.30 H (0.01-0.20) K/uL Sodium 135 L (136-145) mmol/L Potassium 4.2 (3.5-5.1) mmol/L Chloride 102 (98-107) mmol/L Carbon Dioxide 24 (21-32) mmol/L Anion Gap 9 (3-11) BUN 12 (6-23) mg/dl Creatinine 0.63 D (0.6-1.2) mg/dl Est Cr Clr Drug Dosing 93.5 ml/min Est GFR ( Amer) 109.1 ml/min Est GFR (Non-Af Amer) 94.1 ml/min BUN/Creatinine Ratio 19.0 (10-20) Glucose 155 H (70-99(Fasting)) mg/dl POC Glucose 147 H 155 H (70-99) mg/dl Calcium 8.4 L (8.6-10.3) mg/dl Phosphorus 3.9 (2.5-4.9) mg/dl Magnesium 1.9 (1.7-2.4) mg/dl SARS-CoV-2, RNA, NAAT (NEGATIVE) Medications Administered Current Inpatient Medications Acetaminophen (Acetaminophen 500 Mg Tab) 1,000 mg PO Q8H PRN PRN Reason: MILD Pain Scale 1,2,3 & Pre PT Stop: 10/23/23 16:32 Al Hydrox/Mg Hydrox/Simethicone (Aluminum/Magnesium Susp 30 Ml Udc) 30 ml PO Q6H PRN PRN Reason: Dyspepsia Stop: 10/23/23 16:32 Bisacodyl (Bisacodyl 10 Mg Supp) 10 mg RI DAILY PRN PRN Reason: Constipation Stop: 10/23/23 16:32 Bupropion HCl (Bupropion Xl 300 Mg Tabcr) 300 mg PO QAM MICHELLE Stop: 10/23/23 08:59 Last Admin: 09/24/23 08:04 Dose: 300 mg Diphenhydramine HCl (Diphenhydramine Capsule 25 Mg Cap) 25 mg PO Q6H PRN PRN Reason: Allergic Rhinitis/Insomnia Stop: 10/22/23 15:52 Famotidine (Famotidine 20 Mg Tab) 20 mg PO BID [facility] Stop: 10/22/23 20:59 Last Admin: 09/24/23 08:04 Dose: 20 mg Famotidine (Famotidine 20 Mg Tab) 20 mg PO QPM MICHELLE Stop: 10/22/23 20:59 Last Admin: 09/23/23 20:22 Dose: Not Given Gabapentin (Gabapentin 600 Mg Tab) 600 mg PO TID MICHELLE Stop: 10/22/23 20:59 Last Admin: 09/24/23 08:04 Dose: 600 mg Hydromorphone HCl (Hydromorphone Inj 0.5 Mg/0.5 Ml Syr) 0.5 mg IV Q3H PRN PRN Reason: MODERATE Pain (Scale 4,5,6) & Pre PT Stop: 10/07/23 16:32 Hydromorphone HCl (Hydromorphone Inj 1 Mg/Ml Syringe) 1 mg IV Q3H PRN PRN Reason: SEVERE Pain (Scale 7,8,9,10) Stop: 10/07/23 16:32 Last Admin: 09/24/23 14:21 Dose: 1 mg Hydroxyzine HCl (Hydroxyzine Hcl 25 Mg Tab) 25 mg PO Q8H PRN PRN Reason: Anxiety Stop: 10/23/23 16:32 Promethazine HCl 12.5 mg/ (Sodium Chloride) 50.5 mls @ 202 mls/hr IV Q6H PRN PRN Reason: Nausea &/or Vomiting Stop: 10/23/23 16:32 Acetaminophen (Ofirmev) 1,000 mg in 100 mls @ 400 mls/hr IV Q8H PRN PRN Reason: Pain Rating 1-3 & Pre PT Stop: 09/24/23 16:34 Lorazepam 0.5 mg/ Syringe 0.5 mls @ 2 mls/min IV Q8H PRN; Protocol PRN Reason: Sedation/Anxiety Stop: 10/23/23 16:32 Influenza Virus Vaccine Quadrival (Do Not Administer Flu Vaccine) 1 each N/A PRN PRN PRN Reason: Notification Stop: 10/23/23 16:32 Lorazepam (Lorazepam 0.5 Mg Tab) 0.5 mg PO Q8H PRN PRN Reason: Sedation/Anxiety Stop: 10/23/23 16:32 Magnesium Hydroxide (Magnesium Hydroxide Susp 30 Ml Udc) 30 ml PO Q24H PRN PRN Reason: Constipation Stop: 10/23/23 16:32 Magnesium Oxide (Magnesium Oxide 400 Mg Tab) 400 mg PO PM MICHELLE Stop: 10/22/23 20:59 Last Admin: 09/23/23 20:23 Dose: 400 mg Metoclopramide HCl (Metoclopramide Hcl Inj 5 Mg/Ml 2 Ml Vial) 10 mg IV Q6H PRN PRN Reason: Nausea &/or Vomiting Stop: 10/23/23 16:32 Montelukast Sodium (Montelukast Sodium 10 Mg Tablet) 10 mg PO QAM [facility] Stop: 10/23/23 08:59 Last Admin: 09/24/23 08:04 Dose: 10 mg Naloxone HCl (Naloxone Hcl 0.4 Mg/1 Ml Vial/Carp) 0.1 mg IV Q5M PRN PRN Reason: Oversedation/Resp depression Stop: 10/23/23 16:32 Ondansetron HCl (Ondansetron Inj 2 Mg/Ml 2 Ml Vial) 4 mg IV Q6H PRN PRN Reason: Nausea &/or Vomiting Stop: 10/23/23 16:32 Ondansetron HCl (Ondansetron 4 Mg Od Tab) 4 mg PO Q6H PRN PRN Reason: Nausea Stop: 10/23/23 16:32 Oxycodone HCl (Oxycodone Hcl Ir 5 Mg Tab (Immediate Release)) 5 - 10 mg PO Q4H PRN PRN Reason: Pain & Pre PT Stop: 10/07/23 16:32 Pantoprazole Sodium (Pantoprazole 40 Mg Tab) 40 mg PO QAM [facility] Stop: 10/23/23 08:59 Last Admin: 09/24/23 08:04 Dose: 40 mg Pneumococcal Polyvalent Vaccine (Do Not Administer Pneumococcal Vaccine) 1 each N/A PRN PRN PRN Reason: Notification Stop: 10/23/23 16:32 Polyethylene Glycol (Polyethylene (Miralax) 17 Gm Pack) 17 gm PO Q6 [facility] Stop: 10/24/23 05:59 Last Admin: 09/24/23 12:15 Dose: Not Given Rosuvastatin Calcium (Rosuvastatin Calcium 20 Mg Tab) 20 mg PO PM [facility] Stop: 10/22/23 20:59 Last Admin: 09/23/23 20:23 Dose: 20 mg Senna/Docusate Sodium (Docusate Sodium/Senna 50/8.6mg Tab) 2 tab PO HS [facility] Stop: 03/08/24 20:59 Last Admin: 09/23/23 20:24 Dose: Not Given Sertraline HCl (Sertraline Hcl 50 Mg Tablet) 150 mg PO QPM [facility] Stop: 10/22/23 20:59 Last Admin: 09/23/23 20:23 Dose: 150 mg Sodium Biphosphate/Sodium Phosphate (Sod Phosphate/Sod Biphosphate Enema 132 Ml Btl) 132 ml RI ONE PRN PRN Reason: Constipation Stop: 10/23/23 16:32 Tizanidine HCl (Tizanidine Hcl 4 Mg Tablet) 4 mg PO TID [facility] Stop: 10/22/23 20:59 Last Admin: 09/24/23 08:04 Dose: 4 mg Tramadol HCl (Tramadol Hcl 50 Mg Tablet) 50 - 100 mg PO Q4H PRN PRN Reason: Moderate-Severe pain & Pre PT Stop: 10/23/23 16:32
[2023-09-25 07:34] LABS: Hematocrit (blood only) 26.6 % (37.0-47.0); Mean Corpuscular Hgb Conc 33.8 g/dL (32.0-36.0); Mean Corpuscular Volume 91.7 fL (80.0-100.0); Mean Platelet Volume 11.3 fL (9.4-12.4); Platelet Count 188 K/uL (130-400); RDW Coefficient of Variation 13.2 % (11.5-14.5); RDW Standard Deviation 43.9 fL (36.4-46.3); White Blood Count 14.52 K/ul (4.8-10.8)
[2023-09-25 08:00] LABS: BUN Creatinine Ratio 26.8 (10-20); Calcium 8.5 mg/dl (8.6-10.3); Est GFR (African American) 103.6 ml/min; Est GFR (Non-African American) 89.4 ml/min; Magnesium 1.9 mg/dl (1.7-2.4); Phosphorus 2.9 mg/dl (2.5-4.9); Potassium 3.9 mmol/L (3.5-5.1)
--- NOTE | 2023-09-25 10:27 | Orthopedic Progress Note ---
Date of Service September 25, 2023 Assessment & Plan (1) Myelopathy concurrent with and due to spinal stenosis of thoracic region: Plan: At this time the patient will continue with occupational therapy and physical therapy. We are going to try to get her to rehab. She lives alone and is markedly myelopathic and very unsteady on her feet. Will be unsafe for her to return home as she is. Admission and Anticipated Discharge Date Admission Date: September 23, 2023 Subjective Patient struggling with back pain. Still has difficulty with steady ambulation. Physical Exam Physical Exam: Patient is in the chair at the bedside. She has reasonable strength testing lower extremities with significant clonus still present. Results & Data Vital Signs (Past 12 Hours) Vital Signs Temp Pulse Resp BP Pulse Ox O2 Del Method 09/25/23 07:12 36.6 C 72 16 103/62 96 Room Air Queries Orthopedic Spine Obesity: Yes
--- NOTE | 2023-09-25 15:39 | Hospitalist Progress Note ---
Date of Service September 25, 2023 Assessment & Plan (1) Neurogenic claudication due to lumbar spinal stenosis: Plan Per previous hospitalist notes with addendum: Ms. Flores Mederos is a 63 year old with HLD, chronic pain 2/2 neurogenic claudication and osteoarthritis, HTN, depression, GERD, who is being admitted to Ortho Spine service for T9-T12 decompression and fusions, as well as T12-L2 hardware removal. Neurogenic claudication due to lumbar stenosis -s/p decompression and fusion on , pain/symptoms returned prompting planned revision today -Monitor post-operative CBC for appropriate blood loss, transfuse hgb <7.0 09/25 Patient reports pain is not controlled at all, still having significant back pain, resulting to poor ambulation Reports she has been using hydrocodone for more than 30 years Will increase Dilaudid IV to 1.5 mg every 3 hours as needed for pain with holding parameters Continue bowel regimen Monitor close Acute blood loss anemia, post-op vs dilutional pre-op Hgb 12.1, current 9.8 - expected, no need for blood transfusion at this time, cont. to monitor H&H Hemoglobin 9 Repeat tomorrow HTN Hold home Lisinopril 10mg, resume as appropriate postoperatively Systolic blood pressure 180 Monitor closely CKDII No recent baseline for comparison, Cr. 0.92; gentle hydration per primary #history of lichen planus in mouth sores intermittently appear, no precipitating cause she can identify -Dexamethasone rinse 0.5mg prn #Depression Sertraline 150mg evening Buprion 300mg morning Allergic rhinitis -Albuterol and Loratadine prn during seasonal periods -Singulair qam GERD Omeprazole 20mg qam, famotidine 20mg noon, ranitidine 150mg qpm HLD -Rosuvastatin 20mg qpm DVT ppx per primary service Thank you for consulting [facility]. We will continue to follow patient throughout her admission. Please feel free to [employer] for any questions or concerns. Admission and Anticipated Discharge Date Admission Date: September 23, 2023 Subjective Follow-up status post back surgery, etc. Seen resting in bed, sitting up, not in distress Patient's family visiting at the bedside States she feels okay overall except for significant back pain, worse with movement precluding her to move more Denies leg pain, numbness or weakness no chest pain, dyspnea, palpitations, dizziness No other new symptoms Review of Systems Review of Systems: all noted and negative except for above Physical Exam Physical Exam: General- oriented x 3, not in distress, speaks in sentences with no effort or accessory muscle use Eyes- anicteric Neck- no JVD Lungs- clear breath sounds bilaterally, no crackles or wheezes Heart- normal rate, regular rhythm; no murmurs Abdomen- normal bowel sounds, nondistended, soft, nontender Extremities- no pretibial edema, no calf tenderness Neuro- alert, oriented x 3; no gross focal neurologic deficits Skin- warm & dry Results & Data Results & Data Vital Signs (Past 12 Hours) Vital Signs Temp Pulse Resp BP Pulse Ox O2 Del Method 09/25/23 14:41 36.8 C 84 16 118/69 95 Room Air 09/25/23 07:12 36.6 C 72 16 103/62 96 Room Air all noted and reviewed including below
[2023-09-25] MEDS: HYDROmorphone INJ 1 MG/ML SYRINGE IV PRN (17:22)
[2023-09-25] MEDS: oxyCODONE HCL IR 5 MG TAB (IMMEDIATE RELEASE) PO PRN (21:25)
[2023-09-25] MEDS: ACETAMINOPHEN 500 MG TAB PO PRN (21:25)
--- NOTE | 2023-09-26 08:45 | Orthopedic Progress Note ---
Date of Service September 26, 2023 Assessment & Plan (1) Myelopathy concurrent with and due to spinal stenosis of thoracic region: Plan: Flores is postoperative day 3 status post thoracic decompression instrumented fusion secondary to severe stenosis and myelopathy. Will work on aggressive bowel regimen. Maintain SHAY drain. Restart physical therapy today. DVT prophylaxis is in the form teds and SCDs. Will anticipate discharge to rehab early next week Admission and Anticipated Discharge Date Admission Date: September 23, 2023 Subjective Flores is postoperative day 3 status post T T10-T12 decompression with instrumented fusion T9-L3 with hardware removal T12-L3. She is passing flatus but no bowel movement. Pain is controlled. Lower extremities still feel weak. SHAY drain output last shift was 50 cc. Did not have physical therapy yesterday. The day before she was ambulating 50 feet. Review of Systems Review of Systems: All systems reviewed & are unremarkable except as noted in HPI & below Physical Exam Physical Exam: She is alert and oriented x 3 Laying in bed in no acute distress Thoracolumbar dressing is clean dry and intact with functioning SHAY drain calf soft and nontender bilaterally strength unchanged bilateral lower extremities Results & Data Vital Signs (Past 12 Hours) Vital Signs Temp Pulse Resp BP Pulse Ox O2 Del Method 09/26/23 07:00 37.3 C 81 18 114/68 94 Room Air Queries Orthopedic Spine Obesity: Yes
[2023-09-26 10:30] LABS: Basophils # (auto) 0.05 K/uL (0.00-0.20); Basophils % (auto) 0.4 %; Eosinophils # (auto) 0.12 K/uL (0.00-0.50); Eosinophils % (auto) 0.9 %; Hematocrit (blood only) 29.5 % (37.0-47.0); Hemoglobin 9.6 g/dl (12.0-16.0); Immature Granulocytes # (auto) 0.16 K/uL (0.01-0.20); Immature Granulocytes % (auto) 1.2 %; Lymphocytes # (auto) 2.84 K/uL (1.20-3.40); Lymphocytes % (auto) 22.1 %; Mean Corpuscular Hemoglobin 30.7 pg (25.0-34.0); Mean Corpuscular Hgb Conc 32.5 g/dL (32.0-36.0); Mean Corpuscular Volume 94.2 fL (80.0-100.0); Mean Platelet Volume 11.5 fL (9.4-12.4); Monocytes % (auto) 11.7 %; Neutrophils # (auto) 8.17 K/uL (1.40-6.50); Neutrophils % (auto) 63.7 %; Platelet Count 214 K/uL (130-400); RDW Coefficient of Variation 13.1 % (11.5-14.5); RDW Standard Deviation 45.1 fL (36.4-46.3); Red Blood Count 3.13 M/uL (4.20-5.40); White Blood Count 12.84 K/ul (4.8-10.8)
--- NOTE | 2023-09-26 16:30 | Hospitalist Progress Note ---
Date of Service September 26, 2023 Assessment & Plan (1) Neurogenic claudication due to lumbar spinal stenosis: Plan Per previous hospitalist notes with addendum: Ms. Flores Mederos is a 63 year old with HLD, chronic pain 2/2 neurogenic claudication and osteoarthritis, HTN, depression, GERD, who is being admitted to Ortho Spine service for T9-T12 decompression and fusions, as well as T12-L2 hardware removal. Neurogenic claudication due to lumbar stenosis -s/p decompression and fusion on , pain/symptoms returned prompting planned revision today -Monitor post-operative CBC for appropriate blood loss, transfuse hgb <7.0 09/25 Patient reports pain is not controlled at all, still having significant back pain, resulting to poor ambulation Reports she has been using hydrocodone for more than 30 years Will increase Dilaudid IV to 1.5 mg every 3 hours as needed for pain with holding parameters Continue bowel regimen Monitor close 09/26 pain better controlled will add PRN Lactulose, Dulcolax suppository Acute blood loss anemia, post-op vs dilutional pre-op Hgb 12.1, current 9.8 - expected, no need for blood transfusion at this time, cont. to monitor H&H Hemoglobin 9.6 HTN Hold home Lisinopril 10mg, resume as appropriate postoperatively Systolic blood pressure 103/52 Monitor closely CKDII No recent baseline for comparison, Cr. 0.92; gentle hydration per primary #history of lichen planus in mouth sores intermittently appear, no precipitating cause she can identify - Dexamethasone rinse 0.5mg prn #Depression Sertraline 150mg evening Buprion 300mg morning Allergic rhinitis -Albuterol and Loratadine prn during seasonal periods -Singulair qam GERD Omeprazole 20mg qam, famotidine 20mg noon, ranitidine 150mg qpm HLD -Rosuvastatin 20mg qpm DVT ppx per primary service Thank you for consulting [facility] Hospitalist. We will continue to follow patient throughout her admission. Please feel free to [employer] for any questions or concerns. Admission and Anticipated Discharge Date Admission Date: September 23, 2023 Subjective Follow-up for status post back surgery, etc. Seen resting in bed, comfortable, not in distress States pain is more manageable today No BMs yet but no abdominal pain, nausea Positive flatus No other new symptom Review of Systems Review of Systems: all noted and negative except for above Physical Exam Physical Exam: General- oriented x 3, not in distress, speaks in sentences with no effort or accessory muscle use Eyes- anicteric Neck- no JVD Lungs- clear breath sounds bilaterally, no crackles or wheezing Heart- normal rate, regular rhythm; no murmurs Abdomen- normal bowel sounds, nondistended, soft, no tenderness Extremities- no pretibial edema, no calf tenderness Neuro- alert, oriented x 3; no gross focal neurologic deficits Skin- warm & dry Results & Data Results & Data Vital Signs (Past 12 Hours) Vital Signs Temp Pulse Resp BP Pulse Ox O2 Del Method 09/26/23 14:39 36.8 C 76 16 103/52 L 94 Room Air 09/26/23 07:00 37.3 C 81 18 114/68 94 Room Air all noted and reviewed including below
[2023-09-26] MEDS ORDERED: LACTULOSE SYRUP 20 GM/30 ML UDC PO PRN (16:34)
[2023-09-26] MEDS ORDERED: bisacodyL 5 MG TABEC PO PRN (16:34)
--- NOTE | 2023-09-27 08:34 | Orthopedic Progress Note ---
Date of Service September 27, 2023 Assessment & Plan (1) Myelopathy concurrent with and due to spinal stenosis of thoracic region: Plan: Flores is postoperative day 4 status post thoracolumbar decompression and fusion secondary to myelopathy. I will reorder physical therapy and Occupational Therapy. We are currently just waiting discharge to SNF. DC SHAY drain. Continue with pain control we have discussed switching to oral medication. DVT prophylaxis in the form teds and SCDs. Admission and Anticipated Discharge Date Admission Date: September 23, 2023 Subjective Flores is postoperative day 4 status post T10-12 decompression instrumented fusion T9-L3 with hardware removal T12-L3. She has not had physical therapy in 2 days. She had a bowel movement. Still requiring some IV pain medication. Leg symptoms are greatly improved. SHAY drain output is 30 cc. Review of Systems Review of Systems: All systems reviewed & are unremarkable except as noted in HPI & below Physical Exam Physical Exam: She is lying in bed in no acute distress Alert and orient x 3 Thoracolumbar dressing is clean dry and intact with functioning SHAY drain Strength intact bilateral lower extremities Results & Data Vital Signs (Past 12 Hours) Vital Signs Temp Pulse Resp BP Pulse Ox O2 Del Method 09/27/23 07:00 36.8 C 79 16 112/63 94 Room Air 09/26/23 21:29 36.7 C 89 18 110/62 94 Room Air Queries Orthopedic Spine Obesity: Yes
--- NOTE | 2023-09-27 14:43 | Hospitalist Progress Note ---
Date of Service September 27, 2023 Assessment & Plan (1) Neurogenic claudication due to lumbar spinal stenosis: Plan Per previous hospitalist notes with addendum: Ms. Flores Mederos is a 63 year old with HLD, chronic pain 2/2 neurogenic claudication and osteoarthritis, HTN, depression, GERD, who is being admitted to [facility] service for T9-T12 decompression and fusions, as well as T12-L2 hardware removal. Neurogenic claudication due to lumbar stenosis -s/p decompression and fusion on , pain/symptoms returned prompting planned revision today -Monitor post-operative CBC for appropriate blood loss, transfuse hgb <7.0 09/25 Patient reports pain is not controlled at all, still having significant back pain, resulting to poor ambulation Reports she has been using hydrocodone for more than 30 years Will increase Dilaudid IV to 1.5 mg every 3 hours as needed for pain with holding parameters Continue bowel regimen Monitor close 09/26 pain better controlled will add PRN Lactulose, Dulcolax suppository 09/27 stable continue pain meds continue bowel regimen Acute blood loss anemia, post-op vs dilutional pre-op Hgb 12.1, current 9.8 - expected, no need for blood transfusion at this time, cont. to monitor H&H Hemoglobin 9.6 HTN Hold home Lisinopril 10mg, resume as appropriate postoperatively Systolic blood pressure 104/66 Monitor closely CKDII No recent baseline for comparison, Cr. 0.92; gentle hydration per primary #history of lichen planus in mouth sores intermittently appear, no precipitating cause she can identify - Dexamethasone rinse 0.5mg prn #Depression Sertraline 150mg evening Buprion 300mg morning Allergic rhinitis -Albuterol and Loratadine prn during seasonal periods -Singulair qam GERD Omeprazole 20mg qam, famotidine 20mg noon, ranitidine 150mg qpm HLD -Rosuvastatin 20mg qpm DVT ppx per primary service [facility] We will continue to follow patient throughout her admission. Please feel free to [employer] for any questions or concerns. Admission and Anticipated Discharge Date Admission Date: September 23, 2023 Subjective Follow-up status post lumbar spine surgery, etc. Seen resting in bed side chair, comfortable, in good spirits States she feels okay overall Still having low back pain, pain medications helping Positive BM yesterday Small BMs today No abdominal pain, nausea vomiting No other new symptoms Review of Systems Review of Systems: all noted and negative except for above Physical Exam Physical Exam: General- oriented x 3, not in distress, speaks in sentences with no effort or accessory muscle use Eyes- anicteric Neck- no JVD Lungs- clear breath sounds bilaterally, no rales/wheezes Heart- normal rate, regular rhythm; no murmurs Abdomen- normal bowel sounds, nondistended, soft, nontender Extremities- no pretibial edema, no calf tenderness Neuro- alert, oriented x 3; no gross focal neurologic deficits Skin- warm & dry Results & Data Results & Data Vital Signs (Past 12 Hours) Vital Signs Temp Pulse Resp BP Pulse Ox O2 Del Method 09/27/23 14:40 36.5 C 75 18 104/66 96 Room Air 09/27/23 07:00 36.8 C 79 16 112/63 94 Room Air all noted and reviewed including below
[2023-09-28 10:57] LABS: Influenza A virus by PCR Negative (Neg); Influenza B virus by PCR Negative (Neg); RSV by PCR Negative (Neg); SARS CoV2 RNA(COVID-19) Ceph NEGATIVE (Negative)
== END 2023-09-28 15:34 | DRG 460 ==
LOC: 3N → PREINTOOBSV 09-23 16:30